=== PATIENT | male | born 1960 | race Caucasian/White ===

== ENCOUNTER → 2017-01-20 | Outpatient (CLI) | payer OTHER ==
[~2017-01-20] MED LIST: ADULT LOW DOSE81 MG PO; ALLERGY RELIEF10 M3 PO; AMBIEN 10 MG TA10 MG PO; APAP500 PO; AZITHROMYCIN 2250 MG PO; COREG PO; COZAAR100 MG PO; CYMBALTA30 MG PO; DESYREL50 MG PO; FUROSEMIDE 80 M80 M1 PO; LACTULOSE10 GM/15 M PO; LEVAQUIN 500 M500 MG PO; LEVEMIR SQ; LOPERAMIDE 2 MG2 M1 PO; NEURONTIN800 MG PO; NOVOLOG100 UNIT/1 SQ; PLAVIX 75 MG TA75 MG PO; SIMVASTATIN40 MG PO; TESTIM5 GM TD; VITAMIN D3 PO
== END ==
LOC: CAT 09:07
DX: M86.9 Osteomyelitis, unspecified (principal); R60.9 Edema, unspecified

== ENCOUNTER → 2017-08-05 | Outpatient (CLI) | payer OTHER | LOC: MRI 09:06 | DX: M86.8X7 Other osteomyelitis, ankle and foot (principal); L97.519 Non-pressure chronic ulcer of other part of right foot with unspecified severity ==

== ENCOUNTER 2018-01-18 23:26 | Inpatient (IN) | payer OTHER ==
[~2018-01-18] VITALS: Ht 193 cm; Wt 189.0 kg
--- NOTE | ~2018-01-18 | EKG ---
[place] [address] [facility] [place] [address] ELECTROCARDIOGRAM REPORT Name: HILDA SKAGGS Room #: 359-P ADM IN M.R.#: [id number] Admission: 01/19/18 Attend Phys: Niels Baer Discharge: Date of : 58 Report #: [id number] THIS REPORT FOR: //name// [facility] ED Test Date: 2018-01-18 Test Time: 23:45:05 Pat Name: HILDA SKAGGS Department: Room: 359 Gender: M Rn Clinical Appeals: deanne : 1960 Requested By: James Chapin Order Number: [id number] MD: Shashi Conley Measurements Intervals [place] Rate: 77 P: 16 MS: 202 QRS: -14 QRSD: 164 T: 1 QT: 414 QTc: 469 Interpretive Statements Sinus rhythm Borderline prolonged MS interval Right bundle branch block No previous ECG available for comparison Electronically Signed On 01-19-2018 7:33:49 CDT by Shashi Conley [email or web address] <ELECTRONICALLY SIGNED> By: Shashi Conley MD, [facility] 01/19/18 0733 [id number] 2345 Shashi Conley MD, FACC /EPI
[~2018-01-18 23:26] MED LIST changes: -COREG PO; +COREG25 MG PO; -DESYREL50 MG PO; +TRAZODONE 150150 M1 PO
[2018-01-18 23:27] VITALS: BP 134/48
[2018-01-18 23:46] LABS: BE(vivo) -1.5 mmol/L (-2 to +3); HCO3 21.6 mmol/L (22.0-26.0); PCO2 VENOUS 31.1 mmHg (41.0-51.0)
[2018-01-18 23:49] LABS: HEMOGLOBIN 10.3 gm/dL (14.0-18.0)
[2018-01-18 23:53] LABS: HEMATOCRIT 31.1 % (42.0-52.0); MCH 29.7 pg (26.0-34.0); MCV 89.9 fL (80.0-100.0); RBC 3.46 mil/uL (4.50-6.00); RDW 14.2 % (10.5-14.5); WBC 25.7 thou/uL (4.0-11.0)
[2018-01-18] MEDS ORDERED: CIPRO250 M1 PO (23:54)
[2018-01-18] MEDS ORDERED: LYRICA 50 MG50 MG PO (23:55)
[2018-01-18] MEDS ORDERED: CLONAZEPAM 1 MG1 M1 PO (23:55)
[2018-01-18] MEDS ORDERED: MIRAPEX0.5 MG PO (23:55)
[2018-01-18 23:56] LABS: CALCIUM 8.9 mg/dL (8.5-10.1); CREATININE 2.5 mg/dL (0.7-1.3); POTASSIUM 5.1 mmol/L (3.5-5.1)
[2018-01-18] MEDS ORDERED: ATORVASTATIN CA40 MG PO (23:56)
[2018-01-18] MEDS ORDERED: PROAIR HFA8.5 GM INH (23:56)
[2018-01-18] MEDS ORDERED: ZOLOFT50 MG PO (23:56)
[2018-01-18] MEDS ORDERED: FLONASE 0.05%50 MCG NASAL (23:57)
[2018-01-19] VITALS (7 sets, daily range): BP systolic 109–179; BP diastolic 49–75
[2018-01-19 00:02] LABS: ALBUMIN 2.9 g/dL (3.4-5.0); TOTAL BILIRUBIN 0.5 mg/dL (<0.1-1.0); TOTAL PROTEIN 7.3 g/dL (6.4-8.2)
[2018-01-19 00:11] LABS: URINE BILIRUBIN NEGATIVE (Negative); URINE BLOOD 1+ (Negative); URINE CLARITY CLOUDY; URINE COLOR YELLOW; URINE GLUCOSE-RANDOM* NEGATIVE (Negative); URINE KETONES NEGATIVE (Negative); URINE LEUKOCYTES-REFLEX 3+ (Negative); URINE NITRITE-REFLEX NEGATIVE (Negative); URINE PROTEIN (DIPSTICK) 2+ (Negative); URINE UROBILINOGEN 0.2 E.U./dl (0.2-1.0)
[2018-01-19 00:25] LABS: ABSOLUTE NEUTROPHILS 23.1 thou/uL (1.4-8.2)
[2018-01-19 00:28] LABS: PLATELET COUNT ND thou/uL (150-400)
[2018-01-19 00:30] LABS: BACTERIA-REFLEX >30 Many /HPF (None Seen); CASTS None Seen /LPF (None Seen); CRYSTALS None Seen /LPF (None Seen); SQUAMOUS 0-3 Few /LPF (0-3); URINE RBC 0-2 Rare /HPF (0-2); URINE WBC-REFLEX >25 Many /HPF (0-5)
[2018-01-20 03:31] VITALS: BP 144/73
[2018-01-20 07:49] VITALS: BP 148/67
[2018-01-20 08:42] LABS: HEMOGLOBIN 9.8 gm/dL (14.0-18.0); MCH 30.7 pg (26.0-34.0); MCHC 33.8 g/dL (28.0-37.0); MCV 90.8 fL (80.0-100.0); RBC 3.19 mil/uL (4.50-6.00); RDW 14.4 % (10.5-14.5)
[2018-01-20 11:18] VITALS: BP 155/70
[2018-01-20 16:31] VITALS: BP 152/67
[2018-01-20 19:50] VITALS: BP 141/59
[2018-01-21 04:30] VITALS: BP 168/77
[2018-01-21 04:55] LABS: ABSOLUTE NEUTROPHILS 5.3 thou/uL (1.4-8.2); BASOPHILS 0.5 % (0.0-2.0); HEMATOCRIT 27.7 % (42.0-52.0); HEMOGLOBIN 9.3 gm/dL (14.0-18.0); LYMPHOCYTES 17.5 % (24.0-44.0); MCH 30.2 pg (26.0-34.0); MCHC 33.4 g/dL (28.0-37.0); MCV 90.4 fL (80.0-100.0); MONOCYTES 9.9 % (1.0-8.0); PLATELET COUNT 229 thou/uL (150-400); POLYS 71.1 % (36.0-66.0); RBC 3.07 mil/uL (4.50-6.00); WBC 7.4 thou/uL (4.0-11.0)
[2018-01-21 05:02] LABS: CALCIUM 8.9 mg/dL (8.5-10.1); CREATININE 2.3 mg/dL (0.7-1.3); POTASSIUM 4.1 mmol/L (3.5-5.1)
[2018-01-21 07:53] VITALS: BP 186/83
[2018-01-21 11:29] VITALS: BP 177/75
[2018-01-21 16:21] VITALS: BP 146/67
[2018-01-21 19:08] VITALS: BP 140/63
[2018-01-22 03:34] VITALS: BP 136/72
[2018-01-22 07:56] VITALS: BP 171/75
[2018-01-22 11:30] VITALS: BP 175/74
[2018-01-22 16:17] VITALS: BP 189/81
[2018-01-22 19:21] VITALS: BP 136/64
[2018-01-23 03:56] VITALS: BP 134/70
[2018-01-23 05:23] LABS: ABSOLUTE NEUTROPHILS 4.4 thou/uL (1.4-8.2); BASOPHILS 0.7 % (0.0-2.0); EOSINOPHILS 2.7 % (0.0-3.0); HEMATOCRIT 29.4 % (42.0-52.0); HEMOGLOBIN 9.9 gm/dL (14.0-18.0); LYMPHOCYTES 25.3 % (24.0-44.0); MCH 30.2 pg (26.0-34.0); MCHC 33.8 g/dL (28.0-37.0); MCV 89.3 fL (80.0-100.0); MONOCYTES 11.8 % (1.0-8.0); PLATELET COUNT 264 thou/uL (150-400); POLYS 59.5 % (36.0-66.0); RBC 3.29 mil/uL (4.50-6.00); WBC 7.4 thou/uL (4.0-11.0)
[2018-01-23 05:29] LABS: CALCIUM 9.4 mg/dL (8.5-10.1); POTASSIUM 3.7 mmol/L (3.5-5.1)
[2018-01-23 07:20] VITALS: BP 168/82
[2018-01-23 11:02] VITALS: BP 151/68
[2018-01-23 16:02] VITALS: BP 157/74
[2018-01-23 19:06] VITALS: BP 145/66
[2018-01-24 03:24] VITALS: BP 147/69
[2018-01-24 07:17] VITALS: BP 157/76
[2018-01-24 11:29] VITALS: BP 168/80
[2018-01-24] MEDS ORDERED: MERREM1 GM IV ×2 (14:52→14:55)
[2018-01-24] MEDS ORDERED: ENOXAPARIN40 MG/0.1 SUBQ (14:52)
[2018-01-24] MEDS ORDERED: FLOMAX0.4 MG PO (14:52)
[2018-01-24] MEDS ORDERED: MIRALAX17 GM PO (14:52)
[2018-01-24 16:05] VITALS: BP 157/82
== END 2018-01-24 20:20 | DRG 871 ==
LOC: ER 23:26 → 3W 01-19 00:19 → EROBS 01-19 00:19 → 3W 01-19 00:45
PROVIDERS: Emergency Medicine; Hospitalist
DX: A41.9 Sepsis, unspecified organism (principal); N17.0 Acute kidney failure with tubular necrosis; Z68.43 Body mass index [BMI] 50.0-59.9, adult; N39.0 Urinary tract infection, site not specified; E78.5 Hyperlipidemia, unspecified; J44.9 Chronic obstructive pulmonary disease, unspecified; E11.40 Type 2 diabetes mellitus with diabetic neuropathy, unspecified; K21.9 Gastro-esophageal reflux disease without esophagitis; E66.9 Obesity, unspecified; R65.20 Severe sepsis without septic shock; G47.33 Obstructive sleep apnea (adult) (pediatric); N18.9 Chronic kidney disease, unspecified; I12.9 Hypertensive chronic kidney disease with stage 1 through stage 4 chronic kidney disease, or unspecified chronic kidney disease; E11.22 Type 2 diabetes mellitus with diabetic chronic kidney disease; B96.1 Klebsiella pneumoniae [K. pneumoniae] as the cause of diseases classified elsewhere; Z89.512 Acquired absence of left leg below knee; Z86.73 Personal history of transient ischemic attack (TIA), and cerebral infarction without residual deficits; Z79.82 Long term (current) use of aspirin; Z79.899 Other long term (current) drug therapy; Z88.0 Allergy status to penicillin; Z91.013 Allergy to seafood
CPT/HCPCS: 10879

== ENCOUNTER 2018-03-30 09:12 | Inpatient (IN) | payer OTHER ==
[~2018-03-30] VITALS: Ht 193 cm; Wt 172.3 kg
[2018-03-30] VITALS (9 sets, daily range): BP systolic 113–195; BP diastolic 42–92
--- NOTE | ~2018-03-30 | HC ---
[facility] [place] [address] [place] [address] CONSULTATION Name: HILDA SKAGGS Room #: 357-P [facility] IN .R.#: [id number] Admission: 03/30/18 Attend Phys: Neeraj Pride MD Discharge: Date of : 58 Report #: [id number] THIS REPORT FOR: //name// CC: Magdaleno Mesa DATE OF SERVICE: 03/30/2018 GENERAL SURGERY CONSULTATION REFERRING PROVIDER: Paulo Mesa MD REASON FOR CONSULTATION: Abdominal pain. HISTORY OF PRESENT ILLNESS: The patient is a 57-year-old morbidly obese male, with a past medical history of hypertension, diabetes mellitus, chronic kidney disease, COPD, obstructive sleep apnea, prior stroke, neuropathy, CHF, GERD, peripheral vascular disease, status post left BKA, hyperlipidemia and multiple other issues, who sustained a fall at home and presented for evaluation. The patient was found to have a urinary tract infection and underwent evaluation of his abdomen due to complaints of right upper and left lower abdominal pain. An abdominal x-ray showed no overt process; therefore, a CT scan of the abdomen and pelvis was performed, which showed an inflammatory process in the right upper quadrant with a few bubbles of extraluminal air concerning for segmental colitis with a microperforation. As such, the patient has been admitted and I am asked to evaluate from a surgical standpoint. Currently, the patient states no complaints, specifically, no fevers, chills or sweats. He has been hemodynamically stable. White count was slightly elevated at 16.9 thousand. PAST MEDICAL HISTORY: As above as delineated in HPI. HOME MEDICATIONS: Aspirin, Lasix, Plavix, Flomax, Lovenox, MiraLax, aspirin, Coreg, Neurontin, Desyrel, NovoLog, Levemir, Lyrica, clonazepam, Mirapex, ProAir, Lipitor, Zoloft and Flonase. ALLERGIES: FISH AND PENICILLIN. SOCIAL HISTORY: Previous smoker and alcohol use; however, currently does not utilize tobacco, alcohol or illicit drugs. FAMILY HISTORY: Reviewed and noncontributory. REVIEW OF SYSTEMS: GENERAL: The patient denies nocturnal fevers or chills. [facility] [address] [place] [address] CONSULTATION Name: HILDA SKAGGS Room #: 357-P [facility] IN .R.#: [id number] Admission: 03/30/18 Attend Phys: Neeraj Pride MD Discharge: Date of : 58 Report #: [id number] HEENT: No change in vision, change in hearing. NECK: No swelling or difficulty swallowing. HEART: No chest pain or palpitations. LUNGS: No cough or shortness of breath. ABDOMEN: No nausea, no vomiting. GENITOURINARY: No dysuria or hematuria. ENDOCRINE: No polyuria, polydipsia. HEMATOLOGIC: No history of bleeding or easy bruising. EXTREMITIES: No history weakness or limited range of motion. NEUROLOGIC: No history of syncope or near syncopal episodes. SKIN AND INTEGUMENT: History of ulcer on his left heel as well as prior BKA. PSYCHIATRIC: History of depression and anxiety. PHYSICAL EXAMINATION: VITAL SIGNS: Temperature 98.5, pulse 81, respirations 14, blood pressure 162/67. He is 6 feet 4 inches tall and weighs 405 pounds. GENERAL: Alert, in no acute distress. HEENT: Normocephalic, atraumatic. Pupils are equal, round, reactive to light. NECK: Supple, without lymphadenopathy. Trachea midline. HEART: Regular rate and rhythm. LUNGS: Clear to auscultation bilaterally. ABDOMEN: Morbidly obese, soft, minimally distended. He does have diffuse tenderness, worse in the right upper quadrant, although very minimal in the left lower quadrant. GENITOURINARY: Normal external male genitalia. EXTREMITIES: Right heel with fibrinous material eschar, left BKA is unremarkable. NEUROLOGIC: Cranial nerves 2-12 are grossly intact. PSYCHIATRIC: Normal mood and affect. SKIN AND INTEGUMENT: Just the right heel wound. No sacral ischial wounds at this time. LABORATORY AND X-RAY DATA: CBC shows white blood cell count of 16.9 thousand, hemoglobin 9.8, platelets 231,000. Creatinine is 3.4. CT scan of the abdomen and pelvis shows inflammatory fat stranding in the right upper quadrant with small extraluminal air concerning for segmental colitis with microperforation, but no definite abscess. Urine culture is pending. ASSESSMENT AND PLAN: A 57-year-old morbidly obese male, with numerous medical problems, who sustained a fall while transferring from his wheelchair and landing on his right side and now, has complaints of right upper quadrant and left lower quadrant abdominal pain with leukocytosis and a workup showing a urinary tract infection as well as an inflammatory process around the hepatic flexure of the colon concerning for microperforation. At this time, the patient does not appear septic and certainly has no peritonitis. We will continue conservative care with n.p.o. status, IV fluid rehydration, IV antibiotics under [address] [address] CONSULTATION Name: HILDA KSAGGS Room #: 357-P ADM IN M.R.#: [id number] Admission: 03/30/18 Attend Phys: Neeraj Pride MD Discharge: Date of : 58 Report #: [id number] the direction of Infectious Disease and I will perform serial abdominal exams and radiologic studies as indicated. Ideally, the patient will improve with conservative measures and avoid operative intervention as he is a quite unhealthy overall and any operative intervention would certainly lead to perioperative morbidity. I did spend greater than 60 minutes discussing with the patient and all other providers involved in his care regarding the above and all have agreed to proceed as outlined. If the patient does decompensate acutely, he may necessitate emergent exploration, which we hope to avoid. I sincerely appreciate this consult. I will follow closely while hospitalized and leave any further recommendations in the patient's chart as appropriate. <ELECTRONICALLY SIGNED> By: Federica Paul MD, FACS 04/04/18 0809 1235 1918 Federica Paul MD, FACS /nt
--- NOTE | ~2018-03-30 | HC ---
[facility] [place] [address] [place] [address] CONSULTATION Name: HILDA SKAGGS Room #: 357-P ADM IN .R.#: [id number] Admission: 03/30/18 Attend Phys: Neeraj Pride MD Discharge: Date of : 58 Report #: [id number] THIS REPORT FOR: //name// CC: Magdaleno Mesa INFECTIOUS DISEASES CONSULTATION REASON FOR CONSULTATION: I was asked to evaluate concerning peritonitis. HISTORY OF PRESENT ILLNESS: The patient is a 57-year-old with underlying history of diabetes, peripheral vascular disease, hypertension, who I treated in January with an ESBL producing gram-negative urinary tract infection. He did improve following this. He presents now with acute change with weakness, fall where he hit his forehead and left shoulder. No documented fever, chills or sweats. It was thought that he was transferring from the wheelchair and just lost his balance. No documented fever, chills or sweats. He presented to the Emergency Room where he was afebrile and hemodynamically stable. Workup after complaints of abdominal pain noted CT scan with inflammatory changes in the right upper quadrant and free air in the abdomen. Creatinine was up to 2.1. White count was 16.9. Placed on IV antibiotic therapy. Over the last 24 hours, he has shown some improvement. Seen by General Surgery who recommended continued observation and followup. PAST MEDICAL HISTORY: Significant for hypertension, diabetes, obstructive sleep apnea, peripheral vascular disease, left BKA, previous urinary tract infection. ALLERGIES: PENICILLIN, FISH. MEDICATIONS: As noted on his MAR including aspirin, Lasix, Plavix, atorvastatin. FAMILY HISTORY: Diabetes. SOCIAL HISTORY: Past smoker, no significant alcohol intake. REVIEW OF SYSTEMS: He denies any headache, cough or sputum production. No nausea or vomiting. He has had loose stools. Continues to complain of abdominal pain. He had a left BKA. He has a pressure wound to his right heel. PHYSICAL EXAMINATION: VITAL SIGNS: Maximum temperature was 101 degrees last evening, now afebrile and hemodynamically stable. Alert and cooperative. Oxygen per nasal cannula at 2 liters. HEENT: Unremarkable. NECK: Supple. No adenopathy. CHEST: Clear. [facility] [address] [address] CONSULTATION Name: HILDA SKAGGS Room #: 357-P [facility] IN [facility].#: [id number] Admission: 03/30/18 Attend Phys: Neeraj Pride MD Discharge: Date of : 58 Report #: [id number] HEART: Regular without murmur. ABDOMEN: Mildly distended. Tender throughout, but mostly over the right side. No mass or hepatosplenomegaly. EXTREMITIES: Wound to the right heel with fibrinous material eschar. Left BKA was unremarkable. LABORATORY STUDIES: Urinalysis, many wbc's and bacteria with yeast present. This was a voided specimen. Blood cultures negative to date. Sodium 132, potassium 5.2, bicarbonate 22, creatinine 3.4. Hemoglobin 9.8, WBC 14.3, platelet count 231,000. CT of the abdomen compared to study in December showed inflammatory fat stranding in the right upper quadrant with small gas collection. No definite abscess cavity. Urine culture is pending. IMPRESSION AND PLAN: A 57-year-old diabetic with inflammatory change in the right upper quadrant consistent with focal area of colitis with perforation. Etiology of this is not clear. I did review the CT scan and compare it to his previous study in December, I did not see any evidence of significant inflammatory change at that time. I suspect this is what is driving his leukocytosis and likely influenced his unsteadiness and fall. He has a pressure wound to the right heel. Also, he has evidence of cystitis. Given the previous history of an extended-spectrum beta-lactamase producing Klebsiella in December, I would recommend continuing coverage for drug resistant organism. Agree with plan of meropenem and metronidazole at this time. We will await further studies. Follow up laboratory including CBC and chemistry. Repeat imaging studies first of next week to reassess the right upper quadrant. If no improvement, the patient will require surgical intervention for drainage and possibly segmental resection. <ELECTRONICALLY SIGNED> By: Lv Galvan MD 04/03/18 1245 1356 2111 Lv Galvan MD /nt
--- NOTE | ~2018-03-30 | HC ---
[facility] [place] [address] CONSULTATION Name: HILDA SKAGGS Room #: 206-P [facility] IN .R.#: [id number] Admission: 03/30/18 Attend Phys: Paulo Mesa MD Discharge: Date of : 58 Report #: [id number] THIS REPORT FOR: //name// CC: Magdaleno Mesa DATE OF SERVICE: 03/30/2018 CHIEF COMPLAINT: Left heel ulceration. HISTORY OF PRESENT ILLNESS: This is a 57-year-old male patient with a history of diabetes and previous right below knee amputation who was admitted to the hospital following a fall. He states he lost his balance, struck his head. He also has an ulceration on his left heel that has been present for several weeks. He denies any pain due to diabetic neuropathy. I have been asked to see him in regard to wound care. PAST MEDICAL HISTORY: Positive for history of hypertension, diabetes, chronic kidney disease, COPD, cerebrovascular accident, obstructive sleep apnea, diabetic peripheral neuropathy, congestive heart failure, gastroesophageal reflux, peripheral vascular disease, status post left below knee amputation, hyperlipidemia. ALLERGIES: FISH AND PENICILLIN. MEDICATIONS: Include Flomax, Lovenox, MiraLax, Merrem, aspirin, Coreg, furosemide, Neurontin, Plavix, Desyrel, NovoLog, Levemir, Lyrica, clonazepam, Mirapex, ProAir, Lipitor, Zoloft, Flonase. SOCIAL HISTORY: The patient is a previous smoker and admits to past alcohol use. REVIEW OF SYSTEMS: CONSTITUTIONAL: The patient denies fever, chills or weight loss. NEUROLOGICAL: The patient had unsteadiness on his feet with recent fall. Denies current weakness, numbness or tingling. EYES: The patient denies visual changes, redness or drainage. ENT: The patient denies earache, nasal drainage or sore throat. CARDIOVASCULAR: The patient denies chest pain, palpitation or diaphoresis. PULMONARY: The patient denies cough or shortness of breath. GASTROINTESTINAL: The patient denies nausea, vomiting, diarrhea or abdominal pain. ORTHOPEDIC: The patient notes the ulcer on his left heel. Denies pain associated with it. Other systems in a 14-point review of systems are negative in March. [address] [address] CONSULTATION Name: HILDA SKAGGS Room #: 206-P ADM IN .R.#: [id number] Admission: 03/30/18 Attend Phys: Paulo Mesa MD Discharge: Date of : 58 Report #: [id number] PHYSICAL EXAMINATION: VITAL SIGNS: At this time include pulse 74, respiratory rate of 22, blood pressure 151/64, temperature 101.1. GENERAL: This is a chronically ill-appearing male patient who appears to be in mild discomfort. HEENT: Head demonstrates an abrasion to his left eyebrow, there is a Band-Aid in place. Remainder of the head is atraumatic. Extraocular movements are intact. Pupils are equal, round and reactive to light and accommodation. Nose and throat are clear. NECK: Supple. LUNGS: Clear. HEART: Regular rate and rhythm. ABDOMEN: Soft. Bowel sounds present. EXTREMITIES: Lower extremities demonstrate previous left below knee amputation appears to be well healed. Right heel demonstrates an oval shaped ulceration to the posterior portion of the heel. It is covered with moderate fibrinous material and subcutaneous tissue that is slightly dry. There is a slight odor, although there is no surrounding cellulitis. NEUROLOGIC: The patient is alert and does move all 4 extremities. LABORATORY DATA: Includes sodium 133, potassium 4.9, chloride 102, CO2 of 21, BUN 45, creatinine 2.8, glucose 211. White blood cell count 16.9 with a hemoglobin of 9.9, hematocrit of 29.8, platelet count 240,000. CT head demonstrates no acute abnormality. CLINICAL IMPRESSION: 1. Unstageable pressure ulcer to the right heel. 2. Diabetes mellitus with peripheral neuropathy. 3. History of peripheral vascular disease. 4. Status post previous left below knee amputation. RECOMMENDATIONS: At this point in time, I think it would be worthwhile checking arterial Doppler of the right lower extremity, although I do feel distal pulses present. We will need to debride the right heel for the time being, we will start with quarter strength Dakin's moist gauze dressing b.i.d., Prevalon boot for pressure prophylaxis. I will need aggressive nutritional support for maximizing wound healing and glycemic control. I appreciate being asked to see him in consultation. <ELECTRONICALLY SIGNED> By: Yazan Dao MD 03/31/18 1131 25 13 Yazan Dao MD /nt
--- NOTE | ~2018-03-30 | HC ---
[facility] [place] [address] CONSULTATION Name: HILDA SKAGGS Room #: 357-P [facility] IN ..#: [id number] Admission: 03/30/18 Attend Phys: Neeraj Pride MD Discharge: Date of : 58 Report #: [id number] THIS REPORT FOR: //name// CC: Magdaleno Mesa REASON FOR CONSULTATION: Elevated creatinine and fluid management. REASON FOR PRESENTATION: Post fall. HISTORY OF PRESENT ILLNESS: The patient is known to have diabetes mellitus, chronic kidney disease, obstructive sleep apnea, status post left BKA due to diabetes mellitus. He presented post fall. Does not recall the entire event. He had abrasion sustained to his forehead and left shoulder. He was admitted for further evaluation and management. Incidentally, he was found to have what was described as potential inflammatory stranding in the right upper quadrant with what seems to be gas collection to the inferior aspect of the right lobe of the liver. The patient denies any abdominal pain. No nausea or vomiting. When he presented yesterday, his creatinine was elevated at 2.8, I am being asked to evaluate him accordingly. He has long-standing diabetes mellitus with all of its complications. Reviewing his labs, it does not look like that he has chronically elevated creatinine, most recent creatinine back in January of this year was as high as 2.0. Labs in December revealed a creatinine of 2.5. It does not look like that he has significant proteinuria. Kidneys on the CT scan did not reveal any hydronephrosis; however, his bladder was distended. PAST MEDICAL HISTORY: 1. Hypertension. 2. Diabetes mellitus. 3. Obstructive sleep apnea. 4. Diabetic neuropathy. 5. Peripheral vascular disease, status post left BKA. ALLERGIES: PENICILLIN, FISH. FAMILY HISTORY: Significant for diabetes mellitus. SOCIAL HISTORY: He denies drug or alcohol abuse. Former smoker. MEDICATIONS: 1. Aspirin. 2. Furosemide. 3. Plavix. 4. Atorvastatin. REVIEW OF SYSTEMS: GENERAL: No fever or chills. [facility] [address] [place] [address] CONSULTATION Name: HILDA SKAGGS Room #: 357-[facility] IN [facility].#: [id number] Admission: 03/30/18 Attend Phys: Neeraj Pride MD Discharge: Date of : 58 Report #: [id number] CARDIOVASCULAR: No chest pain or palpitation. PULMONARY: No cough or hemoptysis. GASTROINTESTINAL: No nausea or vomiting. GENITOURINARY: He denies any urinary symptoms. PHYSICAL EXAMINATION: GENERAL: He is alert, oriented, in no apparent distress, was slightly asleep this morning. VITAL SIGNS: Blood pressure 129/54. Temperature 36.8. HEAD AND NECK: No jugular venous distention, no bruit, no thyromegaly. CHEST: Clear to auscultation bilaterally. CARDIOVASCULAR: Regular with no rub. ABDOMEN: Soft, nontender. LOWER EXTREMITIES: Amputation on the left side. LABORATORY DATA: Laboratory values reviewed. Creatinine is up to 2.8. Sodium was 133, potassium was 4.9, BUN was 45. Glucose was 211. Abdominal CT findings, abdominal CT reviewed, possible inflammatory changes in the right upper quadrant. ASSESSMENT, IMPRESSION, PLAN: 1. Chronic kidney disease. 2. Diabetes mellitus. 3. Hypertension. 4. Status post fall. 5. Diabetic related complications. 6. Investigate for possible diabetic nephropathy. Initiate CKD workup. 7. Surgical consultation. 8. Panculture given his leukocytosis. 9. Appropriate antibiotic coverage. 10. Avoid nephrotoxins. 11. Gentle hydration since the patient is going to be n.p.o. 12. Discontinue current gabapentin. 13. Adjust all medications to his GFR. <ELECTRONICALLY SIGNED> By: Emmanuel Chavis MD 04/08/18 0756 0610 0704 Emmanuel Chavis MD /nt
[~2018-03-30 09:12] MED LIST changes: +ATORVASTATIN CA40 MG PO; +CIPRO250 M1 PO; +CLONAZEPAM 1 MG1 M1 PO; +ENOXAPARIN40 MG/0.1 SUBQ; +FLOMAX0.4 MG PO; +FLONASE 0.05%50 MCG NASAL; +LYRICA 50 MG50 MG PO; +MERREM1 GM IV; +MIRALAX17 GM PO; +MIRAPEX0.5 MG PO; +PROAIR HFA8.5 GM INH; +ZOLOFT50 MG PO
[2018-03-30 09:30] LABS: ABSOLUTE NEUTROPHILS 13.9 thou/uL (1.4-8.2); BASOPHILS 0.3 % (0.0-2.0); EOSINOPHILS 0.1 % (0.0-3.0); HEMATOCRIT 29.8 % (42.0-52.0); HEMOGLOBIN 9.9 gm/dL (14.0-18.0); LYMPHOCYTES 8.1 % (24.0-44.0); MCH 30.2 pg (26.0-34.0); MCHC 33.3 g/dL (28.0-37.0); MCV 90.8 fL (80.0-100.0); MONOCYTES 9.4 % (1.0-8.0); PLATELET COUNT 240 thou/uL (150-400); POLYS 82.1 % (36.0-66.0); RBC 3.28 mil/uL (4.50-6.00); RDW 15.1 % (10.5-14.5); WBC 16.9 thou/uL (4.0-11.0)
[2018-03-30 09:42] LABS: CALCIUM 8.8 mg/dL (8.5-10.1); CREATININE 2.8 mg/dL (0.7-1.3); POTASSIUM 4.9 mmol/L (3.5-5.1)
[2018-03-30 09:49] LABS: PROTIME 10.4 Seconds (9.3-11.4)
[2018-03-30 10:40] LABS: URINE BILIRUBIN NEGATIVE (Negative); URINE BLOOD 2+ (Negative); URINE CLARITY CLOUDY; URINE COLOR YELLOW; URINE GLUCOSE-RANDOM* NEGATIVE (Negative); URINE KETONES NEGATIVE (Negative); URINE NITRITE-REFLEX NEGATIVE (Negative); URINE PROTEIN (DIPSTICK) 2+ (Negative); URINE SPECIFIC GRAVITY 1.025 (1.005-1.035); URINE UROBILINOGEN 0.2 E.U./dl (0.2-1.0)
[2018-03-30 10:42] LABS: URINE LEUKOCYTES-REFLEX 3+ (Negative)
[2018-03-30 11:08] LABS: URINE WBC-REFLEX >25 Many /HPF (0-5)
[2018-03-30 11:09] LABS: BACTERIA-REFLEX >30 Many /HPF (None Seen); CASTS None Seen /LPF (None Seen); CRYSTALS None Seen /LPF (None Seen); SQUAMOUS None Seen /LPF (0-3); URINE RBC 0-2 Rare /HPF (0-2); YEAST-REFLEX Present (None Seen)
[2018-03-31 04:31] VITALS: BP 129/54
[2018-03-31 07:45] VITALS: BP 104/54
[2018-03-31 08:59] LABS: HEMATOCRIT 29.5 % (42.0-52.0); HEMOGLOBIN 9.8 gm/dL (14.0-18.0); MCH 30.4 pg (26.0-34.0); MCHC 33.2 g/dL (28.0-37.0); MCV 91.4 fL (80.0-100.0); RBC 3.23 mil/uL (4.50-6.00); WBC 14.3 thou/uL (4.0-11.0)
[2018-03-31 09:06] LABS: CALCIUM 8.9 mg/dL (8.5-10.1); CREATININE 3.4 mg/dL (0.7-1.3); POTASSIUM 5.2 mmol/L (3.5-5.1)
[2018-03-31 10:05] LABS: URINE CREATININE-RANDOM* 239.8 mg/dL; URINE PROTEIN-RANDOM* 396.7 mg/dL (<11.9)
[2018-03-31 10:12] LABS: URINE BILIRUBIN NEGATIVE (Negative); URINE BLOOD 2+ (Negative); URINE CLARITY CLOUDY; URINE COLOR YELLOW; URINE GLUCOSE-RANDOM* NEGATIVE (Negative); URINE KETONES NEGATIVE (Negative); URINE LEUKOCYTES 1+ (Negative); URINE NITRITE NEGATIVE (Negative); URINE PROTEIN (DIPSTICK) 2+ (Negative); URINE SPECIFIC GRAVITY >= 1.030 (1.005-1.035); URINE UROBILINOGEN 0.2 E.U./dl (0.2-1.0)
[2018-03-31 10:21] LABS: COARSE GRANULAR CASTS 4-10 Moderate /LPF (None Seen); SQUAMOUS 0-3 Few /LPF (0-3)
[2018-03-31 10:23] LABS: URINE RBC 0-2 Rare /HPF (0-2); URINE WBC >25 Many /HPF (0-5)
[2018-03-31 10:24] LABS: BACTERIA >30 Many /HPF (None Seen); CRYSTALS None Seen /LPF (None Seen); YEAST Present (None Seen)
[2018-03-31 10:26] LABS: FINE GRANULAR CASTS 0-3 Few /LPF (None Seen)
[2018-03-31 11:45] VITALS: BP 146/51
[2018-03-31 15:00] VITALS: BP 133/41
[2018-03-31 20:11] VITALS: BP 138/60
[2018-04-01] VITALS (19 sets, daily range): BP systolic 138–202; BP diastolic 59–89
[2018-04-01 04:13] LABS: HEMATOCRIT 27.5 % (42.0-52.0); HEMOGLOBIN 9.1 gm/dL (14.0-18.0); MCH 30.4 pg (26.0-34.0); MCHC 33.1 g/dL (28.0-37.0); MCV 91.8 fL (80.0-100.0); RBC 2.99 mil/uL (4.50-6.00); RDW 14.9 % (10.5-14.5); WBC 10.7 thou/uL (4.0-11.0)
[2018-04-01 04:28] LABS: ALBUMIN 2.2 g/dL (3.4-5.0); CALCIUM 8.6 mg/dL (8.5-10.1); CREATININE 2.9 mg/dL (0.7-1.3); PHOSPHORUS 3.2 mg/dL (2.5-4.9); POTASSIUM 4.8 mmol/L (3.5-5.1)
[2018-04-01 14:59] LABS: PROTIME 10.2 Seconds (9.3-11.4)
[2018-04-01 18:10] LABS: ALBUMIN 2.3 g/dL (3.4-5.0); DIRECT BILIRUBIN 0.2 mg/dL (<0.1-0.3); TOTAL BILIRUBIN 0.4 mg/dL (<0.1-1.0); TOTAL PROTEIN 7.1 g/dL (6.4-8.2)
[2018-04-01 18:11] LABS: ALBUMIN 2.3 g/dL (3.4-5.0); ANION GAP 10 mmol/L (7-16); BUN 51 mg/dL (7-18); CHLORIDE 106 mmol/L (98-107); CO2 23 mmol/L (21-32); CREATININE 2.4 mg/dL (0.7-1.3); GLUCOSE 225 mg/dL (74-106); SGOT 21 U/L (15-37); SGPT 12 U/L (30-65); SODIUM 139 mmol/L (136-145); TOTAL BILIRUBIN 0.4 mg/dL (<0.1-1.0); TOTAL PROTEIN 7.1 g/dL (6.4-8.2); TROPONIN-I < 0.04 ng/mL (<0.06)
[2018-04-01 19:20] LABS: ABSOLUTE NEUTROPHILS 12.3 thou/uL (1.4-8.2); BASOPHILS 0.6 % (0.0-2.0); EOSINOPHILS 0.1 % (0.0-3.0); HEMATOCRIT 32.6 % (42.0-52.0); HEMOGLOBIN 10.7 gm/dL (14.0-18.0); MCH 29.9 pg (26.0-34.0); MCHC 32.7 g/dL (28.0-37.0); MCV 91.5 fL (80.0-100.0); MONOCYTES 6.3 % (1.0-8.0); PLATELET COUNT 287 thou/uL (150-400); RBC 3.56 mil/uL (4.50-6.00); RDW 15.1 % (10.5-14.5); WBC 13.6 thou/uL (4.0-11.0)
[2018-04-01 19:27] LABS: BE(vivo) -2.2 mmol/L (-2 to +3); HCO3 22.8 mmol/L (22.0-26.0); PCO2 39.9 mmHg (35.0-45.0); pH 7.375 (7.360-7.450); sO2 95.9 % (92.0-98.0)
[2018-04-02] VITALS (32 sets, daily range): BP systolic 155–230; BP diastolic 65–93
[2018-04-02 05:41] LABS: BE(vivo) -2.9 mmol/L (-2 to +3); HCO3 21.9 mmol/L (22.0-26.0); PCO2 38.3 mmHg (35.0-45.0); PO2 86.3 mmHg (80.0-100.0); pH 7.376 (7.360-7.450); sO2 96.4 % (92.0-98.0)
[2018-04-02 05:54] LABS: ABSOLUTE NEUTROPHILS 12.5 thou/uL (1.4-8.2); BASOPHILS 0.2 % (0.0-2.0); HEMATOCRIT 30.8 % (42.0-52.0); HEMOGLOBIN 10.1 gm/dL (14.0-18.0); LYMPHOCYTES 4.4 % (24.0-44.0); MCH 30.3 pg (26.0-34.0); MCHC 32.9 g/dL (28.0-37.0); MONOCYTES 8.8 % (1.0-8.0); PLATELET COUNT 281 thou/uL (150-400); POLYS 86.6 % (36.0-66.0); RBC 3.34 mil/uL (4.50-6.00); RDW 15.4 % (10.5-14.5); WBC 14.4 thou/uL (4.0-11.0)
[2018-04-02 06:13] LABS: CALCIUM 8.5 mg/dL (8.5-10.1); CREATININE 2.4 mg/dL (0.7-1.3); MAGNESIUM 2.1 mg/dL (1.8-2.4); PHOSPHORUS 3.6 mg/dL (2.5-4.9); POTASSIUM 5.3 mmol/L (3.5-5.1); TOTAL BILIRUBIN 0.5 mg/dL (<0.1-1.0); TOTAL PROTEIN 6.4 g/dL (6.4-8.2)
[2018-04-03 04:50] VITALS: BP 169/75
[2018-04-03 05:59] LABS: BASOPHILS 0.3 % (0.0-2.0); WBC 13.4 thou/uL (4.0-11.0)
[2018-04-03 06:01] LABS: ABSOLUTE NEUTROPHILS 11.7 thou/uL (1.4-8.2); EOSINOPHILS 0.2 % (0.0-3.0); HEMATOCRIT 30.4 % (42.0-52.0); HEMOGLOBIN 10.2 gm/dL (14.0-18.0); LYMPHOCYTES 4.8 % (24.0-44.0); MCH 30.5 pg (26.0-34.0); MCHC 33.5 g/dL (28.0-37.0); MONOCYTES 6.8 % (1.0-8.0); PLATELET COUNT 329 thou/uL (150-400); POLYS 87.9 % (36.0-66.0); RBC 3.34 mil/uL (4.50-6.00); RDW 15.5 % (10.5-14.5)
[2018-04-03 06:19] LABS: ALBUMIN 1.9 g/dL (3.4-5.0); CALCIUM 8.8 mg/dL (8.5-10.1); CREATININE 2.4 mg/dL (0.7-1.3); PHOSPHORUS 3.3 mg/dL (2.5-4.9); POTASSIUM 4.7 mmol/L (3.5-5.1)
[2018-04-03 12:00] VITALS: BP 170/77
[2018-04-03 13:30] VITALS: BP 165/78
[2018-04-03 16:00] VITALS: BP 160/77
[2018-04-03 20:45] VITALS: BP 152/67
[2018-04-04] VITALS (7 sets, daily range): BP systolic 114–180; BP diastolic 60–83
[2018-04-04 06:22] LABS: HEMATOCRIT 32.9 % (42.0-52.0); HEMOGLOBIN 10.5 gm/dL (14.0-18.0); MCH 29.6 pg (26.0-34.0); MCHC 31.8 g/dL (28.0-37.0); MCV 93.1 fL (80.0-100.0); RBC 3.53 mil/uL (4.50-6.00); RDW 15.5 % (10.5-14.5); WBC 14.1 thou/uL (4.0-11.0)
[2018-04-04 06:43] LABS: ALBUMIN 1.9 g/dL (3.4-5.0); CALCIUM 8.9 mg/dL (8.5-10.1); CREATININE 2.5 mg/dL (0.7-1.3); PHOSPHORUS 3.2 mg/dL (2.5-4.9); POTASSIUM 4.4 mmol/L (3.5-5.1)
[2018-04-05 03:45] VITALS: BP 124/49
[2018-04-05 08:00] VITALS: BP 145/55
[2018-04-05 08:46] LABS: ABSOLUTE NEUTROPHILS 10.7 thou/uL (1.4-8.2); BASOPHILS 0.5 % (0.0-2.0); EOSINOPHILS 2.5 % (0.0-3.0); HEMATOCRIT 32.7 % (42.0-52.0); HEMOGLOBIN 10.5 gm/dL (14.0-18.0); LYMPHOCYTES 8.5 % (24.0-44.0); MCH 29.5 pg (26.0-34.0); MCHC 32.1 g/dL (28.0-37.0); MCV 91.8 fL (80.0-100.0); MONOCYTES 10.1 % (1.0-8.0); PLATELET COUNT 381 thou/uL (150-400); POLYS 78.4 % (36.0-66.0); RBC 3.56 mil/uL (4.50-6.00); RDW 15.5 % (10.5-14.5); WBC 13.6 thou/uL (4.0-11.0)
[2018-04-05 08:56] LABS: CALCIUM 8.5 mg/dL (8.5-10.1); CREATININE 2.9 mg/dL (0.7-1.3); POTASSIUM 4.7 mmol/L (3.5-5.1)
[2018-04-05 12:00] VITALS: BP 145/65
[2018-04-05 16:00] VITALS: BP 141/71
[2018-04-05 19:30] VITALS: BP 147/65
[2018-04-06 03:45] VITALS: BP 136/68
[2018-04-06 06:20] LABS: HEMATOCRIT 31.2 % (42.0-52.0); HEMOGLOBIN 10.1 gm/dL (14.0-18.0); MCH 29.6 pg (26.0-34.0); MCHC 32.5 g/dL (28.0-37.0); MCV 91.2 fL (80.0-100.0); RBC 3.42 mil/uL (4.50-6.00); RDW 15.7 % (10.5-14.5)
[2018-04-06 06:32] LABS: ALBUMIN 1.8 g/dL (3.4-5.0); CALCIUM 8.5 mg/dL (8.5-10.1); CREATININE 2.6 mg/dL (0.7-1.3); PHOSPHORUS 4.6 mg/dL (2.5-4.9); POTASSIUM 4.1 mmol/L (3.5-5.1)
[2018-04-06 07:21] VITALS: BP 159/70
[2018-04-06 11:58] VITALS: BP 140/59
[2018-04-06 15:54] VITALS: BP 132/64
[2018-04-06 18:48] VITALS: BP 141/66
[2018-04-07 03:14] VITALS: BP 134/63
[2018-04-07 07:06] LABS: HEMATOCRIT 31.8 % (42.0-52.0); HEMOGLOBIN 10.2 gm/dL (14.0-18.0); MCH 29.7 pg (26.0-34.0); MCHC 32.1 g/dL (28.0-37.0); MCV 92.3 fL (80.0-100.0); RBC 3.45 mil/uL (4.50-6.00); RDW 15.8 % (10.5-14.5); WBC 15.9 thou/uL (4.0-11.0)
[2018-04-07 07:21] LABS: ALBUMIN 1.9 g/dL (3.4-5.0); CALCIUM 8.6 mg/dL (8.5-10.1); CREATININE 2.3 mg/dL (0.7-1.3); POTASSIUM 4.2 mmol/L (3.5-5.1)
[2018-04-07 07:25] VITALS: BP 137/64
[2018-04-07 11:47] VITALS: BP 138/59
[2018-04-07 16:49] VITALS: BP 137/57
[2018-04-07 19:10] VITALS: BP 120/55
[2018-04-08 04:00] VITALS: BP 136/61
[2018-04-08 06:17] LABS: HEMATOCRIT 27.7 % (42.0-52.0); HEMOGLOBIN 8.9 gm/dL (14.0-18.0); MCH 29.4 pg (26.0-34.0); MCHC 32.3 g/dL (28.0-37.0); MCV 90.9 fL (80.0-100.0); RBC 3.05 mil/uL (4.50-6.00); RDW 15.5 % (10.5-14.5); WBC 15.8 thou/uL (4.0-11.0)
[2018-04-08 06:27] LABS: ALBUMIN 1.7 g/dL (3.4-5.0); CALCIUM 8.1 mg/dL (8.5-10.1); CREATININE 2.5 mg/dL (0.7-1.3); PHOSPHORUS 3.8 mg/dL (2.5-4.9); POTASSIUM 3.8 mmol/L (3.5-5.1)
[2018-04-08 08:04] VITALS: BP 121/55
[2018-04-08 11:55] VITALS: BP 139/59
[2018-04-08 15:43] VITALS: BP 134/62
[2018-04-08 19:30] VITALS: BP 134/57
[2018-04-09 03:43] VITALS: BP 130/60
[2018-04-09 05:39] LABS: ALBUMIN 1.6 g/dL (3.4-5.0); CALCIUM 7.9 mg/dL (8.5-10.1); CREATININE 2.7 mg/dL (0.7-1.3); PHOSPHORUS 4.2 mg/dL (2.5-4.9); POTASSIUM 3.6 mmol/L (3.5-5.1)
[2018-04-09 07:46] VITALS: BP 135/55
[2018-04-09 11:00] VITALS: BP 127/57
[2018-04-09 12:07] VITALS: BP 127/57
[2018-04-09 15:29] VITALS: BP 119/54
[2018-04-09 19:40] VITALS: BP 126/49
[2018-04-10 03:37] VITALS: BP 129/56
[2018-04-10 05:29] LABS: HEMATOCRIT 27.5 % (42.0-52.0); HEMOGLOBIN 8.9 gm/dL (14.0-18.0); MCH 29.6 pg (26.0-34.0); MCHC 32.2 g/dL (28.0-37.0); MCV 91.7 fL (80.0-100.0); RDW 15.4 % (10.5-14.5); WBC 17.1 thou/uL (4.0-11.0)
[2018-04-10 05:43] LABS: ALBUMIN 1.6 g/dL (3.4-5.0); PHOSPHORUS 4.7 mg/dL (2.5-4.9); POTASSIUM 4.4 mmol/L (3.5-5.1)
[2018-04-10 08:19] VITALS: BP 109/48
[2018-04-10 12:14] VITALS: BP 117/58
[2018-04-10 16:13] VITALS: BP 134/63
[2018-04-10 19:30] VITALS: BP 124/47
[2018-04-11 03:40] VITALS: BP 130/58
[2018-04-11 05:33] LABS: ALBUMIN 1.6 g/dL (3.4-5.0); CALCIUM 8.1 mg/dL (8.5-10.1); CREATININE 3.4 mg/dL (0.7-1.3); PHOSPHORUS 4.9 mg/dL (2.5-4.9); POTASSIUM 4.2 mmol/L (3.5-5.1)
[2018-04-11 08:18] VITALS: BP 155/65
[2018-04-11 11:55] VITALS: BP 165/75
[2018-04-11 12:15] VITALS: BP 165/75
[2018-04-11 17:37] VITALS: BP 147/53
[2018-04-11 21:00] VITALS: BP 144/60
[2018-04-12 05:00] VITALS: BP 132/58
[2018-04-12 05:54] LABS: HEMATOCRIT 25.5 % (42.0-52.0); HEMOGLOBIN 8.2 gm/dL (14.0-18.0); MCH 29.7 pg (26.0-34.0); MCHC 32.3 g/dL (28.0-37.0); MCV 91.9 fL (80.0-100.0); RBC 2.77 mil/uL (4.50-6.00); RDW 15.7 % (10.5-14.5); WBC 16.2 thou/uL (4.0-11.0)
[2018-04-12 06:13] LABS: MAGNESIUM 2.3 mg/dL (1.8-2.4); PHOSPHORUS 5.5 mg/dL (2.5-4.9)
[2018-04-12 06:14] LABS: ALBUMIN 1.5 g/dL (3.4-5.0); CALCIUM 7.6 mg/dL (8.5-10.1); CREATININE 3.3 mg/dL (0.7-1.3); POTASSIUM 4.7 mmol/L (3.5-5.1); TOTAL BILIRUBIN 0.3 mg/dL (<0.1-1.0); TOTAL PROTEIN 5.6 g/dL (6.4-8.2)
[2018-04-12 07:45] VITALS: BP 111/48
[2018-04-12 11:24] VITALS: BP 132/59
[2018-04-12 15:09] VITALS: BP 131/59
[2018-04-12 19:07] VITALS: BP 143/71
[2018-04-13 03:29] VITALS: BP 141/64
[2018-04-13 07:09] LABS: ALBUMIN 1.5 g/dL (3.4-5.0); CALCIUM 7.9 mg/dL (8.5-10.1); PHOSPHORUS 4.9 mg/dL (2.5-4.9); POTASSIUM 4.4 mmol/L (3.5-5.1)
[2018-04-13 08:05] VITALS: BP 145/61
[2018-04-13 15:31] VITALS: BP 144/66
[2018-04-13 20:30] VITALS: BP 141/63
[2018-04-14] VITALS (9 sets, daily range): BP systolic 129–158; BP diastolic 51–100
[2018-04-14 06:26] LABS: ABSOLUTE NEUTROPHILS 7.7 thou/uL (1.4-8.2); BASOPHILS 0.5 % (0.0-2.0); EOSINOPHILS 2.2 % (0.0-3.0); HEMATOCRIT 24.8 % (42.0-52.0); HEMOGLOBIN 8.1 gm/dL (14.0-18.0); LYMPHOCYTES 11.6 % (24.0-44.0); MCH 29.8 pg (26.0-34.0); MCHC 32.5 g/dL (28.0-37.0); MCV 91.8 fL (80.0-100.0); MONOCYTES 8.9 % (1.0-8.0); PLATELET COUNT 387 thou/uL (150-400); POLYS 76.8 % (36.0-66.0); RBC 2.71 mil/uL (4.50-6.00); RDW 15.8 % (10.5-14.5); WBC 10.1 thou/uL (4.0-11.0)
[2018-04-14 06:45] LABS: ALBUMIN 1.5 g/dL (3.4-5.0); CALCIUM 7.9 mg/dL (8.5-10.1); CREATININE 2.6 mg/dL (0.7-1.3); PHOSPHORUS 4.4 mg/dL (2.5-4.9); POTASSIUM 4.3 mmol/L (3.5-5.1); TOTAL BILIRUBIN 0.2 mg/dL (<0.1-1.0); TOTAL PROTEIN 6.2 g/dL (6.4-8.2)
[2018-04-14 09:59] LABS: APTT 32.4 Seconds (24.5-32.8); INR 1.1; PROTIME 10.8 Seconds (9.3-11.4)
[2018-04-14 12:44] LABS: CLARITY TURBID; COLOR TAN; SOURCE ABSCESS DRAIN FLUID; TOTAL VOLUME 22 mL
[2018-04-14 13:39] LABS: BF NUCLEATED CELLS 551300; BF RBC 251400
[2018-04-14 13:56] LABS: BF MACROPHAGE 0; BF NEUTROPHILS 26
[2018-04-15 04:36] VITALS: BP 150/70
[2018-04-15 05:56] LABS: ALBUMIN 1.5 g/dL (3.4-5.0); CALCIUM 7.8 mg/dL (8.5-10.1); CREATININE 2.2 mg/dL (0.7-1.3); PHOSPHORUS 3.5 mg/dL (2.5-4.9); POTASSIUM 4.6 mmol/L (3.5-5.1)
[2018-04-15 07:40] VITALS: BP 176/80
[2018-04-15] MEDS ORDERED: VANCOMYCIN HCL10 GM PO (09:53)
[2018-04-15] MEDS ORDERED: MEROPENEM 1 GM V1 GM IV (09:53)
[2018-04-15] MEDS ORDERED: HEPARIN SO5000 UNIT/ SUBQ (09:53)
[2018-04-15] MEDS ORDERED: NOVOLOG100 UNIT/1 SUBQ ×2 (09:54)
[2018-04-15] MEDS ORDERED: LANTUS100 UNIT/M SUBQ (09:54)
[2018-04-15] MEDS ORDERED: HYDROCODON-ACE1 EAC7 PO (09:54)
[2018-04-15 10:18] VITALS: BP 176/80
[2018-04-15 12:34] VITALS: BP 176/80
== END 2018-04-15 12:32 | DRG 871 ==
LOC: ER 09:12 → 2N 12:14 → EROBS 12:14 → 2N 13:22 → ICU 04-01 17:38 → 3W 04-02 10:39 → ICU 04-02 16:37 → 3W 04-15 12:32
PROVIDERS: Hospitalist; Internal Medicine Nephrology; Internal Medicine Pulmonary Disease; Physician Assistant; Specialist; Surgery
PROC: 0DJD8ZZ Inspection of Lower Intestinal Tract, Via Natural or Artificial Opening Endoscopic (ICD-10-PCS; principal; 2018-04-12)
PROC: 0W9F30Z Drainage of Abdominal Wall with Drainage Device, Percutaneous Approach (ICD-10-PCS; 2018-04-14)
DX: A41.9 Sepsis, unspecified organism (principal); E43 Unspecified severe protein-calorie malnutrition; K65.9 Peritonitis, unspecified; A04.72 Enterocolitis due to Clostridium difficile, not specified as recurrent; N17.9 Acute kidney failure, unspecified; J98.11 Atelectasis; K56.7 Ileus, unspecified; K57.20 Diverticulitis of large intestine with perforation and abscess without bleeding; Z68.42 Body mass index [BMI] 45.0-49.9, adult; R18.8 Other ascites; N18.9 Chronic kidney disease, unspecified; E11.22 Type 2 diabetes mellitus with diabetic chronic kidney disease; E11.42 Type 2 diabetes mellitus with diabetic polyneuropathy; I12.9 Hypertensive chronic kidney disease with stage 1 through stage 4 chronic kidney disease, or unspecified chronic kidney disease; F32.9 Major depressive disorder, single episode, unspecified; E66.9 Obesity, unspecified; E11.621 Type 2 diabetes mellitus with foot ulcer; L89.610 Pressure ulcer of right heel, unstageable; E11.51 Type 2 diabetes mellitus with diabetic peripheral angiopathy without gangrene; J44.9 Chronic obstructive pulmonary disease, unspecified; K21.9 Gastro-esophageal reflux disease without esophagitis; E78.5 Hyperlipidemia, unspecified; N31.9 Neuromuscular dysfunction of bladder, unspecified; G47.33 Obstructive sleep apnea (adult) (pediatric); D64.9 Anemia, unspecified; Z87.891 Personal history of nicotine dependence; Z89.512 Acquired absence of left leg below knee; Z88.0 Allergy status to penicillin; Z91.013 Allergy to seafood
CPT/HCPCS: 10078; 10081; 10203; 10779; 10879; 27000; 62110; 62900; 70005

== ENCOUNTER → 2018-04-27 | Outpatient (CLI) | payer OTHER ==
[~2018-04-27] MED LIST changes: +HEPARIN SO5000 UNIT/ SUBQ; +HYDROCODON-ACE1 EAC7 PO; +LANTUS100 UNIT/M SUBQ; +MEROPENEM 1 GM V1 GM IV; +NOVOLOG100 UNIT/1 SUBQ; +VANCOMYCIN HCL10 GM PO
== END ==
LOC: CAT 08:16
DX: Z09 Encounter for follow-up examination after completed treatment for conditions other than malignant neoplasm (principal); J90 Pleural effusion, not elsewhere classified

== ENCOUNTER → 2018-05-11 | Outpatient (CLI) | payer OTHER | LOC: ULTRA 09:03 | DX: J90 Pleural effusion, not elsewhere classified (principal); K57.30 Diverticulosis of large intestine without perforation or abscess without bleeding; J98.11 Atelectasis ==

== ENCOUNTER → 2018-09-05 | Outpatient (CLI) | payer OTHER ==
--- NOTE | ~2018-09-05 | SLE ---
[facility] [place] [address] POLYSOMNOGRAPHY STUDY Name: HILDA SKAGGS Room #: [facility]#: [id number] Admission: 09/05/18 Attend Phys: Romeo New MD Discharge: Date of : 58 Report #: [id number] THIS REPORT FOR: //name// CC: Romeo June MD DATE OF SERVICE: 09/05/2018 SLEEP STUDY ATTENDING PHYSICIAN: Magdaleno June MD The patient is a 57 years old who weighs 350 pounds with a BMI of 42.6. The patient has severe subjective hypersomnia with an Austin score of 24 out of a maximum of 24. The patient underwent a split night sleep study at [facility]. During the night study, the patient spent 399 minutes in bed and slept for 302 minutes with a sleep efficiency of 76%. Sleep latency was 4.1 minutes with a REM latency of 22.1 minutes, which was short. Overall, sleep architecture showed normal stage I and stage 2 sleep, increased slow wave sleep, which was 33% of the total sleep time and normal REM sleep, which is 22% of the total sleep time. During the initial diagnostic portion of the study, the patient spent 399 minutes in bed and slept for 302 minutes. During that time, the patient had 9 central apneas and 78 hypopneas. There were no obstructive or mixed apneas seen. The patient's apnea-hypopnea index was 17.3 per hour with a REM index of 14.3 per hour and a supine index of 17.3 per hour. EKG monitoring revealed an average heart rate of 59 beats per minute with a maximum of 66 beats per minute. No sustained arrhythmias were observed. Occasional PVC' seen. The patient had a left below knee amputation and right leg was wrapped from the foot to the knee as a result leg movements were not measured. Nocturnal oximetry study during the diagnostic portion revealed an average oxygen saturation of 94%, the lowest of 80%. 11 minutes were spent in an oxygen saturation between 80% and 89%. The patient met the criteria for CPAP initiation. It was started at 5 cm water and kept at 5 cm water. At the final pressure, the patient slept for 197 minutes. The patient's AHI was reduced to 7 per hour. The patient had supine sleep throughout as well as REM sleep was observed. The patient's oxygen [facility] [address] [place] [address] POLYSOMNOGRAPHY STUDY Name: HILDA SKAGGS [id number] Admission: 09/05/18 Attend Phys: Romeo New MD Discharge: Date of : 58 Report #: [id number] saturation remained above 91%. Would recommend 7 cm H20 prerssure. IMPRESSION: 1. Moderate sleep apnea-hypopnea syndrome at an AHI of 17 per hour. 2. Mild nocturnal hypoxia secondary to obstructive sleep apnea, but resolved with CPAP. RECOMMENDATIONS: 1. The patient should be placed on CPAP at 7 cm water. The patient's AHI at 5 cm of water was 7 per hour. 2. Follow up in 4-6 weeks to assess compliance with CPAP and to document clinical improvement. 3. Weight loss is strongly advised. 4. Avoid [employer] depressants. 5. Cautioned regarding driving until symptoms of sleep apnea resolve with the use of CPAP. <ELECTRONICALLY SIGNED> By: Romeo New MD 09/07/18 1611 1356 1437 Romeo New MD /nt
== END ==
LOC: SLEEPLAB 09-04 10:50
DX: G47.33 Obstructive sleep apnea (adult) (pediatric) (principal); R09.02 Hypoxemia

== ENCOUNTER → 2018-10-19 | Outpatient (CLI) | payer OTHER ==
[2018-10-19 10:00] LABS: CREATININE 2.3 mg/dL (0.7-1.3)
== END ==
LOC: CAT 09:00
PROVIDERS: Surgery
DX: K57.30 Diverticulosis of large intestine without perforation or abscess without bleeding (principal); M47.815 Spondylosis without myelopathy or radiculopathy, thoracolumbar region; Z90.49 Acquired absence of other specified parts of digestive tract; L02.91 Cutaneous abscess, unspecified

== ENCOUNTER 2018-10-24 16:55 | Emergency (ER) | payer OTHER ==
[~2018-10-24] VITALS: Ht 193 cm; Wt 167.4 kg
[2018-10-24 17:34] VITALS: BP 198/84
== END 2018-10-24 19:10 ==
LOC: ER 16:55
DX: H60.91 Unspecified otitis externa, right ear (principal); F17.210 Nicotine dependence, cigarettes, uncomplicated; E78.5 Hyperlipidemia, unspecified; G47.30 Sleep apnea, unspecified; J44.9 Chronic obstructive pulmonary disease, unspecified; E11.40 Type 2 diabetes mellitus with diabetic neuropathy, unspecified; K21.9 Gastro-esophageal reflux disease without esophagitis; E66.9 Obesity, unspecified; Z68.41 Body mass index [BMI] 40.0-44.9, adult; E11.22 Type 2 diabetes mellitus with diabetic chronic kidney disease; I13.0 Hypertensive heart and chronic kidney disease with heart failure and stage 1 through stage 4 chronic kidney disease, or unspecified chronic kidney disease; I50.9 Heart failure, unspecified; N18.9 Chronic kidney disease, unspecified; I73.9 Peripheral vascular disease, unspecified; Z79.4 Long term (current) use of insulin; Z88.0 Allergy status to penicillin; Z91.013 Allergy to seafood; Z86.73 Personal history of transient ischemic attack (TIA), and cerebral infarction without residual deficits

== ENCOUNTER → 2019-01-15 | Outpatient (CLI) | payer OTHER ==
[~2019-01-15] VITALS: Ht 193 cm; Wt 166.9 kg
[~2019-01-15] MED LIST changes: +GLUTOSE GEL 1515 G1 PO; +LEVEMIR SUBQ; +METHENAMINE HIPP1 G1 PO; +ONDANSETRON HCL4 M2 PO; +PROBIOTIC1 EAC1 PO; +PROTONIX40 M1 PO
--- NOTE | 2019-01-17 10:07 | PATH ---
[facility] [place] [address] PATHOLOGY RPT PROCEDURE Name: HILDA SKAGGS Room #: REG [facility] M.R.#: [id number] ������������������ Admission: 01/15/19 ������������������ Date of : 58 Discharge: Report #: [id number] Path Case #: [id number] [facility] Accession Number: [id number] . 01 Material submitted: . PART A: BX DUODENUM R/O CELIAC DISEASE PART B: BX GASTRIC ANTRUM R/O H.PYLORI PART C: BX CECAL ULCER AND INFLAMMATION PART D: POLYP AT HEPATIC FLEXURE . 01 Clinical history: . Pre-OP DX: Right side abdominal pain Post-OP DX: Hiatal hernia, gastritis, cecal ulcer, colon polyp . 02 Diagnosis: A. Small bowel mucosa, duodenum rule out celiac disease, endoscopic biopsy: - No significant diagnostic abnormalities present. - Negative for villous blunting or increase in intraepithelial lymphocytes. . B. Gastric mucosa, gastric antrum rule out H. pylori, endoscopic biopsy: - Mild reactive gastropathy. - Negative for intestinal metaplasia or atrophy. - Negative for Helicobacter pylori (properly controlled immunohistochemical stain performed). . C. Large intestinal mucosa, cecal ulcer and inflammation, endoscopic biopsy: - Ulceration along with mild to moderate active colitis. . D. Polyp, at hepatic flexure, endoscopic biopsy: - Tubular adenoma. - Negative for high grade dysplasia. LBQ/01/16/2019 . 02 Comment: Part C: Examination shows fragments of ulcer, granulation tissue (ulcer base), surface epithelial acute inflammation, cryptitis, as well as crypt abscess formation. The lamina propria cellularity is markedly increased. There are no granulomata, or viral inclusions present. One fragment appears to be completely spared by the process. Subtle architectural abnormalities are present. Overall, the differential diagnosis includes inflammatory bowel disease (Crohn's disease as well as ulcerative colitis), infectious-type of colitis, acute self-limited episode of colitis, medication-induced colitis, as well as acute diverticulitis. Please correlate clinically and follow-up as indicated. [address] [address] PATHOLOGY RPT PROCEDURE Name: HILDA SKAGGS Room #: REG CL [place]#: [id number] ������������������ Admission: 01/15/19 ������������������ Date of : 58 Discharge: Report #: [id number] Path Case #: [id number] (IUV/db; 01/16/2019) . 02 Electronically signed: . Emma Hernandez MD, Pathologist NPI- [id number] . 01 Gross description: . A. Received in formalin labeled "Pankaj, Hilda, BX duodenum, rule out celiac disease," is a single segment of giraldo soft tissue measuring 0.6 cm in maximum dimension. The specimen is entirely submitted in cassette A1. . B. Received in formalin labeled "Pankaj, Hilda, BX gastric antrum, rule out H. pylori," are 2 segments of giraldo soft tissue measuring 0.9 x 0.2 x 0.2 cm in aggregate dimensions and ranging from 0.4 to 0.5 cm in maximum dimension. The specimen is submitted entirely in cassette B1. . C. Received in formalin labeled "Pankaj, Hilda, BX cecal ulcer; Inflammation," are 4 segments of giraldo soft tissue measuring 0.9 x 0.7 x 0.2 cm in aggregate dimensions and ranging from 0.1 to 0.3 cm in maximum dimension. The specimen is submitted entirely in cassette C1. . D. Received in formalin labeled "Pankaj, Hilda, polyp at hepatic flexure," are 3 segments of giraldo soft tissue measuring 0.8 x 0.6 x 0.2 cm in aggregate dimensions and ranging from 0.2 to 0.5 cm in maximum dimension. The specimen is submitted entirely in cassette D1. (TSD; 01/15/2019) TOB/TOB . 02 Pathologist provided ICD-10: K31.9, K52.9, D12.3 . 02 CPT . 276537, 626044, 415778, 773397, I64835 Specimen Comment: A courtesy copy of this report has been sent to Specimen Comment: [phone], . Specimen Comment: Report sent to / DR CONWAY Specimen Comment: A duplicate report has been generated due to demographic updates. Performed at: [address], [place], [place] [id number] MD Chandler Mendes MD Phone: [phone] Performed at: [address] [id number] MD Emma Hernandez MD Phone: [phone]
== END | disposition home or self-care (01) ==
LOC: GI 09:48
DX: D12.3 Benign neoplasm of transverse colon (principal); K52.9 Noninfective gastroenteritis and colitis, unspecified; K57.30 Diverticulosis of large intestine without perforation or abscess without bleeding; K31.9 Disease of stomach and duodenum, unspecified; K29.70 Gastritis, unspecified, without bleeding; K44.9 Diaphragmatic hernia without obstruction or gangrene; K64.8 Other hemorrhoids; I11.0 Hypertensive heart disease with heart failure; I50.9 Heart failure, unspecified; J44.9 Chronic obstructive pulmonary disease, unspecified; E78.00 Pure hypercholesterolemia, unspecified; G47.33 Obstructive sleep apnea (adult) (pediatric); K21.9 Gastro-esophageal reflux disease without esophagitis; E11.9 Type 2 diabetes mellitus without complications; F03.90 Unspecified dementia, unspecified severity, without behavioral disturbance, psychotic disturbance, mood disturbance, and anxiety; Z79.4 Long term (current) use of insulin; Z79.899 Other long term (current) drug therapy; Z98.890 Other specified postprocedural states; Z88.0 Allergy status to penicillin
CPT/HCPCS: 62110; 62900

== ENCOUNTER → 2019-01-24 | Outpatient (CLI) | payer OTHER ==
[2019-01-24 09:22] LABS: CREATININE 2.9 mg/dL (0.7-1.3)
== END ==
LOC: CAT 01-19 10:58
PROVIDERS: Internal Medicine Gastroenterology
DX: K52.9 Noninfective gastroenteritis and colitis, unspecified (principal); K31.89 Other diseases of stomach and duodenum; K57.30 Diverticulosis of large intestine without perforation or abscess without bleeding; N32.89 Other specified disorders of bladder; M25.78 Osteophyte, vertebrae; Z90.49 Acquired absence of other specified parts of digestive tract

== ENCOUNTER 2019-07-12 08:35 | Emergency (ER) | payer OTHER ==
[~2019-07-12] VITALS: Ht 193 cm; Wt 148.3 kg
[2019-07-12 09:11] LABS: CALCIUM 9.2 mg/dL (8.5-10.1); CREATININE 4.7 mg/dL (0.7-1.3)
[2019-07-12 09:12] LABS: POTASSIUM 4.6 mmol/L (3.5-5.1)
[2019-07-12 09:17] LABS: ALBUMIN 2.3 g/dL (3.4-5.0); TOTAL BILIRUBIN 0.5 mg/dL (<0.1-1.0)
[2019-07-12 09:50] LABS: HEMATOCRIT 32.2 % (42.0-52.0); HEMOGLOBIN 10.4 gm/dL (14.0-18.0); MCH 30.3 pg (26.0-34.0); MCHC 32.1 g/dL (28.0-37.0); MCV 94.4 fL (80.0-100.0); RBC 3.41 mil/uL (4.50-6.00); RDW 15.3 % (10.5-14.5)
[2019-07-12 10:21] LABS: ABSOLUTE NEUTROPHILS 9.6 thou/uL (1.4-8.2); ANISOCYTOSIS 1+; METAMYELOCYTES 1 %; MYELOCYTES 1 %; PLATELET COUNT 327 thou/uL (150-400)
[2019-07-12 11:36] VITALS: BP 133/73
--- NOTE | 2019-07-12 16:41 | EKG ---
[place] [address] [facility] [place] [address] ELECTROCARDIOGRAM REPORT Name: HILDA SKAGGS [id number] ������������������ Admission: 07/12/19 ������������������ Attend Phys: Discharge: 07/12/19 ������������������ Date of : 58 Report #: [id number] ����������������������������������������������������������������� [id number] THIS REPORT FOR: //name// [facility] ED Test Date: 2019-07-12 Test Time: 09:17:28 Pat Name: HILDA SKAGGS Department: Room: Gender: M Civil Engineer'S Aide: : 1960 Requested By: Josy Vásquez Order Number: [id number] MD: Joao Kauffman Measurements Intervals [place] Rate: 75 P: 52 NM: 229 QRS: -34 QRSD: 179 T: -10 QT: 434 QTc: 485 Interpretive Statements Sinus rhythm Prolonged NM interval Nonspecific intraventricular conduction delay Baseline wander in lead(s) V2 Compared to ECG 01/18/2018 23:45:05 Electronically Signed On 07-12-2019 16:41:47 CDT by Joao Kauffman [email or web address] ��������������������������������������������� <ELECTRONICALLY SIGNED> ���������������������������������������� By: Joao Kauffman MD ��������������������������������������������� 07/12/19 1641 6 6 Joao Kauffman MD /HOOD
== END 2019-07-12 12:51 | disposition home or self-care (01) ==
LOC: ER 08:35
PROVIDERS: Emergency Medicine Emergency Medical Services
DX: R11.2 Nausea with vomiting, unspecified (principal); E11.22 Type 2 diabetes mellitus with diabetic chronic kidney disease; I13.0 Hypertensive heart and chronic kidney disease with heart failure and stage 1 through stage 4 chronic kidney disease, or unspecified chronic kidney disease; I50.9 Heart failure, unspecified; N18.9 Chronic kidney disease, unspecified; E11.40 Type 2 diabetes mellitus with diabetic neuropathy, unspecified; E78.5 Hyperlipidemia, unspecified; J44.9 Chronic obstructive pulmonary disease, unspecified; G47.30 Sleep apnea, unspecified; K21.9 Gastro-esophageal reflux disease without esophagitis; F17.210 Nicotine dependence, cigarettes, uncomplicated; Z86.73 Personal history of transient ischemic attack (TIA), and cerebral infarction without residual deficits; Z86.14 Personal history of Methicillin resistant Staphylococcus aureus infection; Z89.512 Acquired absence of left leg below knee; Z79.4 Long term (current) use of insulin; Z99.2 Dependence on renal dialysis; Z88.0 Allergy status to penicillin; Z91.013 Allergy to seafood

== ENCOUNTER 2019-08-13 14:40 | Inpatient (IN) | payer OTHER ==
[~2019-08-13] VITALS: Ht 193 cm; Wt 149.7 kg
--- NOTE | ~2019-08-13 | H ---
Former[facility] [place] [address] [place] [address] HISTORY AND PHYSICAL Name: HILDA SKAGGS Room #: 170-9 ADM IN M.R.#: [id number] Admission: 08/13/19 Attend Phys: Erna Huddleston MD Discharge: Date of : 58 Report #: [id number] THIS REPORT FOR: //name// CC: Magdaleno Huddleston DATE OF SERVICE: 08/13/2019 PRIMARY CARE PHYSICIAN: Dr. Marti, gravel wheeler at [facility], but the patient's primary care physician is in [facility]. CHIEF COMPLAINT: Pleuritic chest pain for past 2 weeks. 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 The patient also has had a brainstem stroke in the past as well as congestive heart failure, hypertension, diabetes mellitus type 2, anemia of chronic disease for which he gets iron infusion at [facility] with a dialysis. The patient informs me that he has been having this pleuritic chest pain for past 2 weeks and every time he takes deep breaths, his ribs hurt anteriorly as well as in the back and he has been telling to his longterm staff and yesterday, the pain got so bad that they gave him a breathing treatment and this morning also been continuously got worse and breathing treatment, did not help the pain at all. He went to dialysis today and the pain was 10/10 and he could not breathe and therefore, he was sent here to the hospital for further evaluation. The patient denies any fever, shaking chills or night sweats. Denies any sputum production or hemoptysis. Denies any exposure to infection. Denies any blood clots in the past and he informs me that he does not recall having any history of peptic ulcer disease or bleeding ulcers and has not had any nausea, vomiting or diarrhea. He does have bowel movements 1-2 a day and the nurses clean him up, so he has absolutely no idea what color the stool is. He has not had any chest pain, chest pressure or referred pain to the shoulder, jaw or abdomen. Pleuritic chest pain only is the issue. The patient denies any associated abdominal pain or any weakness or numbness of any part of the body other than the paralysis he has for both lower extremities. PAST MEDICAL HISTORY: Significant for, 1. Diabetes mellitus type for last several years. 2. Anemia of chronic disease. 3. Hypertension. 4. Congestive heart failure. 5. Coronary artery disease. 6. Brainstem CVA. 7. Spinal cord accident. Former[facility] [address] [place] [address] HISTORY AND PHYSICAL Name: HILDA SKAGGS Room #: 170-9 ADM IN .R.#: [id number] Admission: 08/13/19 Attend Phys: Erna Huddleston MD Discharge: Date of : 58 Report #: [id number] 8. End-stage renal disease, on dialysis. 9. Urinary tract infection, recurrent. ALLERGIES: 1. THE PATIENT IS ALLERGIC TO PENICILLIN. 2. LANTUS INSULIN AND POTASSIUM HAS BEEN ASSOCIATED WITH SWELLING OF EDEMA OF THE WHOLE BODY AND KIDNEY FAILURE, MAINLY. PERSONAL AND SOCIAL HISTORY: Smoked up until 2 years ago and 1 pack per day and none since then. Quit alcohol. Does not take any alcohol or drugs also. His durable power of family law attorney is Chelsie Sánchez who is the [facility] of medical unit. She is the only person he trusts and he does not want anyone else to speak on his behalf and he is full code. PAST SURGICAL HISTORY: Significant for hip surgery at the age of 12 years. At that time, he also got blood transfusion. He also has had cholecystectomy and left foot surgery, right foot two toes amputated and eye surgery. CODE STATUS: Full code. CURRENT MEDICATIONS: 1. Venofer infusion with hemodialysis. 2. Lisinopril. 3. Lipitor. 4. Methenamine. 5. Coreg. 6. Zofran. 7. Clopidogrel. 8. Bentyl. 9. Pramipexole. 10. Flonase. 11. Flomax. 12. Lasix. 13. Trazodone. 14. Lisinopril. 15. Levemir. 16. Humalog. FAMILY HISTORY: Father had prostate cancer and mother has diabetes, but he is estranged from his family and they have disowned him as the patient informs me and he does not know much about their health history anymore. REVIEW OF SYSTEMS: Ten-point review of system was done and please see HPI above. PHYSICAL EXAMINATION: Former[facility] [address] [place] [address] HISTORY AND PHYSICAL Name: HILDA SKAGGS Room #: 170-9 [facility] M.R.#: [id number] Admission: 08/13/19 Attend Phys: Erna Huddleston MD Discharge: Date of : 58 Report #: [id number] VITAL SIGNS: Temperature 36.8, heart rate 74, respiration 14, blood pressure 99/45, pulse oximetry 97% when he presented to the ER at 1444 hours. At the time of examination, his heart rate was 70, respirations 21, blood pressure 113/60, and pulse oximeter 98% on room air. GENERAL: Alert and oriented to time, place and person, very pleasant 58-year-old gentleman who is bedbound and is in no acute distress. HEENT: Normocephalic, atraumatic. Pupils are equally round and reactive to light. Conjunctivae are clear, but pale. Sclerae nonicteric. Oropharynx is clear. Mucous membranes are moist. NECK: Supple, no JVD, no lymphadenopathy. HEART: S1, S2, regular. No murmur, no S3, no S4. LUNGS: Clear to auscultation bilaterally without any crackles or wheezes; however, deep breathing causes severe pain and so he is basically having shallow breathing. ABDOMEN: Soft, nontender, nondistended, normal active bowel sounds and has a well-healed scar of prior surgeries noted. EXTREMITIES: The patient has amputation in both lower extremities and has some edema both lower extremities. NEUROLOGIC: Paraparesis of both lower extremities. Otherwise, cranial nerves 2-12 are intact. LABORATORY DATA: WBC 8.6, hemoglobin 7.5, hematocrit 23.2, platelet count 177, segmented neutrophil 79.1. Chemistries indicate sodium 138, potassium 2.9, chloride 106, bicarbonate 22, anion gap 10, BUN 15, creatinine 2.2, glucose 106, calcium 8.1, magnesium 1.7, total bilirubin 0.5, direct bilirubin 0.2, AST 13, ALT 5, alkaline phosphatase 92. Troponin I is less than 0.06. Total protein is 6.4, albumin 2.2 and lipase 53. V/Q scan was done in the Emergency Room and it indicates a high probability V/Q scan for pulmonary embolism involving right upper lobe and superior segment of right lower lobe and decreased perfusion of the left lung, also noted as well. Electrocardiogram indicates a normal sinus rhythm with right bundle branch block as well as left anterior fascicular block, otherwise no significant changes noted as compared to prior EKG. ASSESSMENT AND PLAN: 1. Pulmonary embolism. 2. End-stage renal disease. 3. Hypokalemia and hypomagnesemia post-dialysis. 4. Diabetes mellitus type 2. 5. 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 6. History of congestive heart failure. [address] [address] HISTORY AND PHYSICAL Name: HILDA SKAGGS Room #: 170-9 ADM IN [facility]#: [id number] Admission: 08/13/19 Attend Phys: Erna Huddleston MD Discharge: Date of : 58 Report #: [id number] 7. Obesity with body mass index of 32.9. 8. Anemia of chronic disease, requiring iron infusion outpatient. 9. The patient wishes to be full code and DVT prophylaxis. The patient is going to be on a heparin drip. GI prophylaxis, the patient will be on Pepcid renal dosing. PLAN: 1. The patient is being started on heparin drip in the Emergency Room. I plan to continue the same and will go ahead and have Nephrology consult for his end-stage renal disease and hemodialysis as he may require hemodialysis during this hospital stay. We will go ahead and consult Hematology/Oncology as well and the blood drawn in the Emergency Room. We will go ahead and add hypercoagulation panel to that and the patient has not had any history of Hemoccult stool positive, but we will go ahead and send stool for Hemoccult testing and we will also get a venous Doppler for both lower extremities to make sure he does not have any DVTs and the patient is bedbound. 2. The patient has a decubitus ulcer for past 3 months since he was discharged from [facility] and so we will go ahead and get the wound care team involved as well. 3. Full code order has been written. 4. Currently, the patient is afebrile and has not had any history of fever or chills and so I would not start any antibiotics and the patient; however, may have pulmonary infarction, early infiltrate in the right lower lobe is indicated. So we will consider starting Rocephin IV, but I think the chest x-ray abnormality secondary to pulmonary infarction rather than pneumonia as the patient has review of systems completely negative for any pneumonia, any infection and there is no leukocytosis and plan of care have been discussed with the patient. By: 43 21 Erna Huddleston MD /nt
[2019-08-13 14:44] VITALS: BP 99/45
[2019-08-13 15:08] LABS: ANION GAP 10 mmol/L (7-16); BUN 15 mg/dL (7-18); CALCIUM 8.1 mg/dL (8.5-10.1); CHLORIDE 106 mmol/L (98-107); CO2 22 mmol/L (21-32); CREATININE 2.2 mg/dL (0.7-1.3); GLUCOSE 106 mg/dL (74-106); SODIUM 138 mmol/L (136-145)
[2019-08-13 15:09] LABS: POTASSIUM 2.9 mmol/L (3.5-5.1)
[2019-08-13 15:17] LABS: TROPONIN-I <0.06 ng/mL (<0.06)
[2019-08-13 15:30] LABS: ALBUMIN 2.2 g/dL (3.4-5.0); DIRECT BILIRUBIN 0.2 mg/dL (<0.1-0.3); LIPASE 53 U/L (73-393); SGOT 13 U/L (15-37); TOTAL BILIRUBIN 0.5 mg/dL (<0.1-1.0); TOTAL PROTEIN 6.4 g/dL (6.4-8.2)
[2019-08-13 15:39] LABS: SGPT < 5 U/L (30-65)
--- NOTE | 2019-08-13 17:20 | EKG ---
[address] [address] [place] [address] ELECTROCARDIOGRAM REPORT Name: HILDA SKAGGS Room #: [facility]#: [id number] Admission: 08/13/19 Attend Phys: Discharge: Date of : 58 Report #: [id number] THIS REPORT FOR: //name// [facility] ED Test Date: 2019-08-13 Test Time: 14:41:14 Pat Name: HILDA SKAGGS Department: Room: Gender: M Rn Lvn: : 1960 Requested By: Flavio Kowalski Order Number: [id number] MD: Shashi Conley Measurements Intervals [place] Rate: 76 P: -2 [place]: 183 QRS: -71 QRSD: 172 T: -3 QT: 489 QTc: 551 Interpretive Statements Sinus rhythm RBBB and LAFB Compared to ECG 07/12/2019 09:17:28 No significant change was found Electronically Signed On 08-13-2019 17:20:36 CDT by Shashi Conley [email or web address] <ELECTRONICALLY SIGNED> By: Shashi Conley MD, FACC 08/13/19 1720 1441 1441 Shashi Conley MD, FACC /EPI
[2019-08-13 18:15] LABS: ABSOLUTE NEUTROPHILS 6.8 thou/uL (1.4-8.2); BASOPHILS 0.6 % (0.0-2.0); EOSINOPHILS 0.3 % (0.0-3.0); HEMATOCRIT 23.2 % (42.0-52.0); HEMOGLOBIN 7.5 gm/dL (14.0-18.0); LYMPHOCYTES 12.8 % (24.0-44.0); MCH 30.7 pg (26.0-34.0); MCHC 32.1 g/dL (28.0-37.0); MCV 95.8 fL (80.0-100.0); MONOCYTES 7.2 % (1.0-8.0); PLATELET COUNT 177 thou/uL (150-400); POLYS 79.1 % (36.0-66.0); RBC 2.43 mil/uL (4.50-6.00); RDW 16.7 % (10.5-14.5); WBC 8.6 thou/uL (4.0-11.0)
[2019-08-13 20:04] VITALS: BP 113/60
[2019-08-13 20:22] VITALS: BP 109/51
[2019-08-13 20:41] LABS: INR 1.2; PROTIME 12.2 Seconds (9.3-11.4)
[2019-08-13 21:30] VITALS: BP 120/63
[2019-08-13 21:54] LABS: HEMATOCRIT 37.8 % (42.0-52.0); MCH 30.3 pg (26.0-34.0); MCV 94.7 fL (80.0-100.0); RBC 3.99 mil/uL (4.50-6.00); RDW 16.5 % (10.5-14.5); WBC 12.9 thou/uL (4.0-11.0)
[2019-08-13 21:59] LABS: HEMOGLOBIN 12.1 gm/dL (14.0-18.0)
[2019-08-13 23:27] LABS: INR 1.1; PROTIME 11.3 Seconds (9.3-11.4)
[2019-08-13 23:35] LABS: APTT 111.9 Seconds (24.5-32.8)
[2019-08-14] MEDS ORDERED: PROTONIX40 M2 PO (03:12)
[2019-08-14] MEDS ORDERED: RENVELA800 MG PO (03:17)
[2019-08-14] MEDS ORDERED: BACLOFEN5 MG PO (03:18)
[2019-08-14] MEDS ORDERED: LEVEMIR100 UNIT/1 SUBQ (03:22)
[2019-08-14] MEDS ORDERED: VITAMIN C500 M1 PO (03:25)
[2019-08-14] MEDS ORDERED: FUROSEMIDE 40 M40 MG PO (03:27)
[2019-08-14] MEDS ORDERED: LORATIDINE 10 M10 M1 PO (03:28)
--- NOTE | 2019-08-14 03:33 | NUR ---
ADMIT:PT ADMITTED FROM ED WIH CHEST PAIN,ABNORMAL VQ SCAN ADN HYPOKALEMIA.PT S/P DIALYSIS AT [facility].PT ARRIVED TO UNIT VIA CART W/HEPARIN INFUSING AT 18.37 ML/HR AND MAGNESIUM.PT DENIES CHEST PAIN UPON ARRIVAL BUT DO C/O INTERMITTENT PAIN ESPECIALLY WHEN HE COUGHS.PT A/OX4.RESIDES AT [facility].SKIN HAS WOUNDS TO SACRUM AND RIGHT HEEL,SEE PICTURES IN THE CHART.WOUND CARE HAS BEEN CONSULTED,WOUND DRESSED ACCORDINGLY.NATEKA NOTED.PT STATED THAT HE IS PARAPLEGIC,UNABLE TO MOVE FROM WAIST DONE.FISHMAN TO DD.MAKES URINE BUT NOT ALOT PER PT.DIALYSIS TUNNELD CATHETER TO RIGHT CHEST W/DRESSING.VSS.SR W/BBB ON MONITOR.ON RA.MEDS RECONCILED PER PT ADN [facility] MED LIST.NO CONCERNS VOICED AT THIS TIME.WILL CONT TO MONITOR PER POC.
[2019-08-14 05:04] VITALS: BP 125/68
[2019-08-14 07:26] LABS: HEMATOCRIT 35.8 % (42.0-52.0); HEMOGLOBIN 11.5 gm/dL (14.0-18.0); MCH 30.4 pg (26.0-34.0); RBC 3.77 mil/uL (4.50-6.00); RDW 16.7 % (10.5-14.5)
[2019-08-14 07:39] LABS: CALCIUM 8.9 mg/dL (8.5-10.1); CREATININE 4.3 mg/dL (0.7-1.3); MAGNESIUM 2.2 mg/dL (1.8-2.4); POTASSIUM 4.1 mmol/L (3.5-5.1)
[2019-08-14 07:57] VITALS: BP 141/71
--- NOTE | 2019-08-14 10:20 | NUR ---
met with patient he admits with Cp and reports he has clots in lungs. Patient has no emergency contact he makes his decisions. Patient is ltc resident of [facility]. he dializes MWF at [place] [facility]. Patient has hx of LTAC at [facility] He reports good care at both. Plan return to [facility] once stable.
--- NOTE | 2019-08-14 10:41 | NUR ---
FAXED CLINICAL UPDATE TO [facility] RECEIVED CONFIRMATION ADN LEFT MSG WITH JUAN IN ADM . DP TO FOLLOW.
[2019-08-14 11:24] VITALS: BP 133/69
--- NOTE | 2019-08-14 13:58 | EKG ---
[address] [address] ELECTROCARDIOGRAM REPORT Name: HILDA SKAGGS Room #: 206-P ADM IN M.R.#: [id number] Admission: 08/13/19 Attend Phys: Erna Huddleston MD Discharge: Date of : 58 Report #: [id number] THIS REPORT FOR: //name// [facility] Test Date: 2019-08-14 Test Time: 09:46:10 Pat Name: HILDA SKAGGS Department: Room: 206 P Gender: M Ambulance Officer: MONIK : 1960 Requested By: Erna Huddleston Order Number: [id number] MD: Joao Kauffman Measurements Intervals [place] Rate: 70 P: -23 UT: 221 QRS: -65 QRSD: 169 T: -7 QT: 474 QTc: 512 Interpretive Statements Sinus rhythm Prolonged [place] interval RBBB and LAFB Compared to ECG 08/13/2019 14:41:14 First degree AV block now present Electronically Signed On 08-14-2019 13:58:09 CDT by Joao Kauffman [email or web address] <ELECTRONICALLY SIGNED> By: Joao Kauffman MD 08/14/19 1358 Joao Kauffman MD /HOOD
[2019-08-14 15:34] VITALS: BP 136/58
--- NOTE | 2019-08-14 18:46 | NUR ---
PT ON HEPARIN GTT, CHANGES MADE PER PROTOCOL, SEE FLOW SHEET. PT HAS SRAVANTHI, WOUNDS FROM AUDIO VISUAL AIDE ADDRESSED BY WOUND CARE, PT REFUSED TURNS SEVERAL TIMES TODAY. EATING WELL, RIGHT FOOT IN BOOT.
[2019-08-14 20:44] VITALS: BP 130/39
[2019-08-15 04:00] VITALS: BP 122/53
[2019-08-15 05:27] LABS: HEMATOCRIT 31.3 % (42.0-52.0); HEMOGLOBIN 10.2 gm/dL (14.0-18.0); MCH 30.7 pg (26.0-34.0); MCHC 32.6 g/dL (28.0-37.0); MCV 94.2 fL (80.0-100.0); RBC 3.32 mil/uL (4.50-6.00); RDW 16.7 % (10.5-14.5); WBC 9.7 thou/uL (4.0-11.0)
[2019-08-15 05:47] LABS: CALCIUM 8.7 mg/dL (8.5-10.1); CREATININE 4.9 mg/dL (0.7-1.3); MAGNESIUM 2.2 mg/dL (1.8-2.4); PHOSPHORUS 3.4 mg/dL (2.5-4.9); POTASSIUM 3.5 mmol/L (3.5-5.1)
--- NOTE | 2019-08-15 05:47 | NUR ---
ASSUMED PT CARE AT 1900. PT C/O ABD PAIN AND SLIGHT FEVER. GAVE MEDICATION PER DEC WITH PROGRESS ON PAIN AND FEVER. PT SACRUM WOUND WAS CLEANSED AND REDRESSED PER ORDERS. PT HEPARIN PROTOCOL IS BEING FOLLOWED. PT IS BEING MONITORED PER POC. PT HAS DIALYSIS MWF AND IS BEING CONSULTED FOR THIS. WILL CONTINUE TO ASSESS AND MONITOR.
[2019-08-15 07:39] VITALS: BP 111/51
[2019-08-15 11:46] VITALS: BP 117/48
--- NOTE | 2019-08-15 14:36 | NUR ---
met with patient and discussed Advance directives. Patient wants to name a DPOA but at this time has noone to name. Discussed his dtr is listed Aniya and patient reports "she took off." She cannot be found. He found her once on Facebook but she did not respond to him. He reports she is upset with him. He has advance directive information but wants to think of someone to name.
--- NOTE | 2019-08-15 17:15 | NUR ---
PT ALERT AND ORIENTED TIMES FOUR. VSS, 98%RA, SR IN TELE, FISHMAN TO DD. HEPSRIN GTT INFUSING PER PROTOCOL. DRESSSING CHANGED. PT HAD DIALYSIS TODAY NO ISSUES. PT DENIES PAIN/SOA. PT TOLERATES MEDS AND MEALS. PT SLOWLY PROGRESSING TOWRADS POC GOALS.
[2019-08-15 18:30] VITALS: BP 105/56
[2019-08-15 21:06] VITALS: BP 111/52
[2019-08-16 05:55] VITALS: BP 132/68
[2019-08-16 06:18] LABS: HEMATOCRIT 33.4 % (42.0-52.0); HEMOGLOBIN 10.6 gm/dL (14.0-18.0); MCH 30.1 pg (26.0-34.0); MCHC 31.7 g/dL (28.0-37.0); MCV 94.8 fL (80.0-100.0); RBC 3.52 mil/uL (4.50-6.00); RDW 16.7 % (10.5-14.5); WBC 10.1 thou/uL (4.0-11.0)
[2019-08-16 06:34] LABS: MAGNESIUM 1.9 mg/dL (1.8-2.4); PHOSPHORUS 3.7 mg/dL (2.5-4.9); POTASSIUM 3.6 mmol/L (3.5-5.1)
[2019-08-16 06:39] LABS: CREATININE 3.7 mg/dL (0.7-1.3)
--- NOTE | 2019-08-16 06:41 | NUR ---
ASSUMED PT CARE AT 1900. PT VSS. PT JUST FINISHED DIALYSIS AND HAD 4L REMOVED. PT WAS TIRED AND RESTED THRU THE NIGHT. WILL CONTINUE TO MONITOR PT PER POC.
[2019-08-16 09:50] VITALS: BP 124/49
[2019-08-16 12:05] VITALS: BP 127/50
[2019-08-16 13:06] LABS: HEMATOCRIT 32.6 % (42.0-52.0); HEMOGLOBIN 10.5 gm/dL (14.0-18.0); MCH 30.5 pg (26.0-34.0); MCHC 32.2 g/dL (28.0-37.0); MCV 94.7 fL (80.0-100.0); RBC 3.44 mil/uL (4.50-6.00); RDW 16.2 % (10.5-14.5); WBC 10.7 thou/uL (4.0-11.0)
[2019-08-16 15:30] VITALS: BP 123/49
--- NOTE | 2019-08-16 18:04 | NUR ---
ASSESMENT DOCUMENTED, A&O X4. SLEPT MOST OF THE DAY. AFEBRIL AND Q2 POSITIONED NEEDED AND FOR COMFORT. PREGRESSING TOWRDS GOALS AND WILL CONTINUE WITH POC.
[2019-08-16 18:53] LABS: HEMATOCRIT 31.6 % (42.0-52.0); HEMOGLOBIN 10.1 gm/dL (14.0-18.0); MCH 30.3 pg (26.0-34.0); MCV 94.7 fL (80.0-100.0); RBC 3.34 mil/uL (4.50-6.00); RDW 16.2 % (10.5-14.5)
[2019-08-16 19:30] VITALS: BP 124/55
[2019-08-17 03:59] LABS: PROTIME 10.2 Seconds (9.3-11.4)
--- NOTE | 2019-08-17 04:17 | NUR ---
ASSESSMENT DOCUMENTED.PT BEEN RESTING THROUGH THE NOC.VSS.ON RA W/O RESP DISTRESS.AFEBRILE.C/O NAUSEA WITH ONE EPISODE OF YELLOW EMESIS.DENIES ABDOMEN PAIN.PT STATES THIS HAPPENS ALOT EVEN DURING THE DAY,ETIOLOGY UNKNOWN PER PT.ENTIEMETIC GIVEN X1.REMAINS ON HEPARIN DRIP PER PROTOCOL D/T PE AND DVT,APTT THERAPEUTIC.REFUSED TO BE TURNED ADN REPOSITIONED,ON YOEL MATTRESS.PT HOPING TO AHVE WOUND CARE DEBRIDE HIS SACRAL WOUND BEFORE DISCHARGE.WILL CONT TO MONITOR PER POC.
[2019-08-17 04:24] VITALS: BP 128/45
[2019-08-17 07:00] VITALS: BP 161/72
[2019-08-17 11:20] VITALS: BP 108/47
[2019-08-17 15:20] VITALS: BP 113/41
--- NOTE | 2019-08-17 16:46 | NUR ---
Message left for the DON at [facility]. No weekend dc expected. Pt remains on a heprin gtt until his coumadin and INR is theraputic. [facility] The pt dialyzed today. [facility] will need to be contacted and dc summary faxed to them to resume his outpt MWF txs. Will follow.
--- NOTE | 2019-08-17 18:00 | NUR ---
PATIENT CARE ASSUMED, ASSESSMENT CHARTED, VSS, NO COMPLAINTS OF PAIN, PATIENT COMPLETED DIALYSIS IN THE AM, WILL CONTINUE TO MONITOR
[2019-08-18 04:00] VITALS: BP 108/51
[2019-08-18 04:04] LABS: PROTIME 10.7 Seconds (9.3-11.4)
--- NOTE | 2019-08-18 04:32 | NUR ---
PT A7o x4 ABLE TO MAKE NEEDS KNOWN. C/O R RIBS PAIN X1 SO FAR THIS SHIFT. PT CONTINUES IN HEPARIN GTT FOR PE POST VQ SCAN. LAST 2 APTT LEVELS THERAPEUTIC. DIALYSIS PT MWF. PARAPLEGIC. LBKA. HAS COCCYX AND R HEEL PRESSURE ULCERS. ACHS. PT HAS A FISHMAN CATHETER DRAINS WITHOUT DIFFICULTIES. PT OLIGURIC D/T DIALYSIS
[2019-08-18 07:55] VITALS: BP 109/57
[2019-08-18 11:40] VITALS: BP 105/51
--- NOTE | 2019-08-18 12:11 | HC ---
[facility] [place] [address] CONSULTATION Name: GILESHILDA Quiroga Room #: 206-P ADM IN M.R.#: [id number] Admission: 08/13/19 Attend Phys: Erna Huddleston MD Discharge: Date of : 58 Report #: [id number] THIS REPORT FOR: //name// CC: Magdaleno Huddleston DATE OF SERVICE: 08/15/2019 REASON FOR CONSULTATION: End-stage renal disease. REASON FOR THE PRESENTATION: Chest pain and tightness. HISTORY OF PRESENT ILLNESS: A 58-year-old with past medical history of hypertension, diabetes mellitus, peripheral vascular disease, status post left BKA. He dialyzes with the [facility]. He is a Tuesday, Tuesday, Tuesday dialysis patient who was initiated on dialysis a few months ago at [facility] because of longstanding diabetes mellitus and hypertension. He resides in a nursing facility. In the last few minutes of his dialysis yesterday, he began to have some left arm pain and chest pain. He presented to the hospital for further evaluation. He denies any prior similar episodes. He describes the pain as pressure like with radiation to the left upper extremity. He has all the risk factors for coronary artery disease. Lung scan was done yesterday and revealed a high probability for PE. The patient was also found to have DVT. A consult was placed for me to manage the patient's dialysis. PAST MEDICAL HISTORY: 1. Diabetes mellitus. 2. All complications related to diabetes mellitus including diabetic retinopathy, nephropathy, and neuropathy. 3. Anemia of chronic disease. 4. Hypertension. 5. Heart failure. 6. Remote history of cerebrovascular accident. 7. Remote history of spinal cord accident. 8. End-stage renal disease, maintained on dialysis. ALLERGIES: PENICILLIN, FISH CONTAINING PRODUCTS. SOCIAL HISTORY: He quit smoking a couple of years ago. No reported drug or alcohol abuse. He resides in a nursing facility. PAST SURGICAL HISTORY: 1. Hip surgery. 2. Left below-knee amputation. 3. Right foot toe amputations. 4. Cholecystectomy. [facility] [address] [place] [address] CONSULTATION Name: HILDA SKAGGS Room #: 206-P [facility] IN .R.#: [id number] Admission: 08/13/19 Attend Phys: Erna Huddleston MD Discharge: Date of : 58 Report #: [id number] MEDICATIONS: 1. Lisinopril. 2. Plavix. 3. Flomax. 4. Lasix. 5. Trazodone. 6. Lisinopril. 7. Levemir and Humalog. FAMILY HISTORY: His father had diabetes mellitus and prostate cancer. REVIEW OF SYSTEMS: GENERAL: Significant for weakness. CARDIOVASCULAR: As per the history of present illness. PULMONARY: As per the history of present illness. GASTROINTESTINAL: No nausea or vomiting. MUSCULOSKELETAL: Amputee with limited mobility. NEUROLOGICAL: Occasional headache and dizziness, but no seizure activities. PHYSICAL EXAMINATION: VITAL SIGNS: Temperature is 36.5, pulse rate is 63, blood pressure is 111/51. HEAD AND NECK: No jugular venous distention. Right IJ catheter present. CHEST: Bilateral crackles. CARDIOVASCULAR: Regular with no rub detected. ABDOMEN: Soft, nontender. EXTREMITIES: Lower extremities, left below knee amputation. Multiple missing digits on the right side. LABORATORY DATA: Reviewed. Sodium 129, BUN is 39, creatinine is 4.9. Chest x-ray is consistent with mild pulmonary vascular congestion. Lower extremity Doppler is positive for DVT. Lung scan is positive for high probability of pulmonary embolism. IMPRESSION AND PLAN: 1. End-stage renal disease. 2. Deep venous thrombosis. 3. Pulmonary embolism. 4. Diabetes mellitus. 5. Hypertension. 6. We will arrange for the patient to have his usual hemodialysis today. 7. Resume his outpatient medications. 8. Anticoagulation per Hematology services. [address] [address] CONSULTATION Name: HILDA SKAGGS Room #: 206-P [facility] IN M.R.#: [id number] Admission: 08/13/19 Attend Phys: Erna Huddleston MD Discharge: Date of : 58 Report #: [id number] 9. Hyponatremia is likely related to fluid overload and the patient will have to be counseled about his fluid intake. <ELECTRONICALLY SIGNED> By: Emmanuel Chavis MD 08/18/19 1211 0919 [id number] Emmanuel Chavis MD /sue
[2019-08-18 16:00] VITALS: BP 101/48
[2019-08-18 18:41] VITALS: BP 97/50
[2019-08-18 20:01] VITALS: BP 94/51
--- NOTE | 2019-08-18 20:30 | NUR ---
ASSUMMED PT CARE AT APPROXIMATELY 0700. PT A&O X 4. FALL PRECAUTIONS IN PLACE. ASSESSMENT CHARTED. VITAL SIGNS STABLE. Q2 TURNS. PT DENIES HAVING CHEST PAIN. PT DENIES HAVING SOB. PT STATES HE HAS ACUTE PAIN. ANALGESICS GIVEN. PT STATES ANALGESICS RELEIVE PAIN. PT STATED HE WAS NAUSEATED. PT RECIEVED ANTI-EMETIC. PT STATED ANTI-EMETIC RELEIVED NAUSEA. PT'S HEPARIN THERAPEAUTIC THIS AM. PT COMFORTABLE IN BED. PT EDUCATED ABOUT POC. WOUND CARE GIVEN. PT DENIES HAVING FURTHER CONCERNS.
[2019-08-19 04:41] LABS: HEMATOCRIT 33.7 % (42.0-52.0); HEMOGLOBIN 10.8 gm/dL (14.0-18.0); MCH 30.4 pg (26.0-34.0); MCHC 32.1 g/dL (28.0-37.0); MCV 94.7 fL (80.0-100.0); RBC 3.56 mil/uL (4.50-6.00); RDW 16.3 % (10.5-14.5); WBC 10.6 thou/uL (4.0-11.0)
[2019-08-19 04:54] LABS: PROTIME 10.9 Seconds (9.3-11.4)
--- NOTE | 2019-08-19 05:24 | NUR ---
ASSUMED PT CARE AT 1900. PT IS SLEEPING UPON ARRIVAL TO THE ROOM. NO SIGN OF DISTRESS NOTED. FALL PRECAUTION IN PLACE. VITAL SIGNS STABLE. ASSESSMENT COMPLETED AND CHARTED. SCHEDULED MEDS ADMINISTERED TO PT. NO SIGN OF DISTRESS NOTED. PAIN MED ADMINISTERED TO PT. DENIES ANY NEEDS AT THIS TIME.
[2019-08-19 05:32] VITALS: BP 111/49
[2019-08-19 07:50] VITALS: BP 108/48
--- NOTE | 2019-08-19 10:54 | NUR ---
AAOX4. CALM, COOPERATIVE, AFFECT FLAT. SR WITH 1ST DEGREE AV BLOCK, BBB. COAGS NOTED, HEPARIN DRIP IN PROCESS. APTT 70.6, NO CHANGE, RECHECK 08/20. FALL PRECAUTIONS IN PLACE; WILL CONTINUE TO MONITOR CLOSELY.
--- NOTE | 2019-08-19 11:42 | HC ---
[facility] [place] [address] CONSULTATION Name: HILDA SKAGGS Room #: 206-P ADM IN .R.#: [id number] Admission: 08/13/19 Attend Phys: Erna Huddleston MD Discharge: Date of : 58 Report #: [id number] THIS REPORT FOR: //name// CC: Magdaleno Huddleston DATE OF SERVICE: 08/14/2019 HISTORY OF PRESENT ILLNESS: This is a 58-year-old male patient with whom I am familiar from previous hospitalization. He was admitted to the hospital with increasing shortness of breath and was noted to have pressure ulcer of the sacrum and right heel. 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 I have been asked to see him with regard to wound care. The patient states he does not feel particularly bad, is aware of the ulcerations and notes that there has been some odor. Denies any pain associated with this. PAST MEDICAL HISTORY: Positive for recent abnormal ventilation perfusion scan and consideration for possible pulmonary embolus, acute kidney injury. The patient has been started on a heparin drip. CURRENT MEDICATIONS: Include atorvastatin, baclofen, Coreg, docusate sodium, famotidine, guaifenesin and codeine, heparin by infusion, insulin, ondansetron, Mirapex, sevelamer, tamsulosin, Coumadin. SOCIAL HISTORY: Negative for current alcohol or tobacco use. FAMILY HISTORY: Noncontributory. REVIEW OF SYSTEMS: CONSTITUTIONAL: The patient denies fever, chills, or weight loss. NEUROLOGICAL: The patient has paraplegia. ENT: The patient denies earache, nasal drainage, sore throat. CARDIOVASCULAR: The patient does complain of chest pain that is pleuritic and worse with deep inspiration or movement. PULMONARY: The patient denies cough or shortness of breath. GASTROINTESTINAL: The patient denies nausea, vomiting, diarrhea or abdominal pain. PULMONARY: The patient denies cough or shortness of breath. ORTHOPEDIC: The patient is aware of the ulcers on his lower extremities and the sacral region. Other systems in a 14-point review of systems are negative. PHYSICAL EXAMINATION: VITAL SIGNS: At this time include temperature 37.1, pulse 70, respiratory rate 16, blood pressure 136/58. GENERAL: This is a chronically ill-appearing male patient who appears to be in [address] [address] CONSULTATION Name: HILDA SKAGGS Room #: 206-[facility] IN M.R.#: [id number] Admission: 08/13/19 Attend Phys: Erna Huddleston MD Discharge: Date of : 58 Report #: [id number] minimal distress. HEENT: Head normocephalic. Nose is clear. NECK: Supple. LUNGS: Clear. ABDOMEN: Soft. Bowel sounds present. EXTREMITIES: Examination of the sacral region demonstrates what appears to be mostly an unstageable, likely stage 3, but it is unstageable pressure ulcer of the sacral region. There is odor, some eschar and fibrin. I cannot palpate any deep structures, although the base cannot be fully visualized. Exam of the lower extremities demonstrates a 2-3+ edema, some scattered venous type ulcerations as well as pressure ulceration to the right heel that does not appear to be infected. ALLERGIES: Include FISH PRODUCTS AND PENICILLIN. LABORATORY DATA: Sodium 132, potassium 4.1, chloride 98, CO2 23, BUN 27, creatinine 4.3, protime is 11.3, INR is 1.1. White blood cell count 11,000 with hemoglobin 11.7. Albumin is low at 2.2. 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 RECOMMENDATIONS: At this point in time, the patient will be placed on low air loss mattress. He will need q. 2 hour turning positioning. I do believe he needs surgical debridement to the sacral region, although he is currently on a heparin drip that may make that a little bit more difficult. We will start with pulse lavage to the sacrum and see if we can get it cleaned up with local care and pulse lavage followed by quarter strength Dakin's moist gauze dressings. PRAFO boots to both lower extremities, Nutritional consultation and continuation of current medications. I appreciate being asked to see him in consultation. <ELECTRONICALLY SIGNED> By: Yazan Dao MD 08/19/19 1142 [id number] [id number] Yazan Dao MD /nt
[2019-08-19 12:05] VITALS: BP 109/44
[2019-08-19 16:05] VITALS: BP 122/52
[2019-08-19 19:05] LABS: HEMATOCRIT 33.1 % (42.0-52.0); HEMOGLOBIN 10.7 gm/dL (14.0-18.0); MCH 30.3 pg (26.0-34.0); MCHC 32.2 g/dL (28.0-37.0); MCV 93.9 fL (80.0-100.0); RBC 3.52 mil/uL (4.50-6.00); RDW 16.3 % (10.5-14.5); WBC 11.1 thou/uL (4.0-11.0)
[2019-08-19 19:59] VITALS: BP 101/51
[2019-08-20 05:01] VITALS: BP 132/52
--- NOTE | 2019-08-20 05:31 | NUR ---
ASSUMED PT CARE AT 1900. NO SIGN OF DISTRESS NOTED. PT IS ALERT AND ORIENTED AND DENIES ANY NEEDS. PT IS STABL. PT IS LAYING IN BED. DENIES ANY PAIN. ASSESSMENT COMPLETED AND CHARTED. FALL PRECAUTION IN PLACE. SCHEDULED MEDS ADMINISTERED TO PT. PT CONTINUES TO BE ON HEPARIN DRIP. DENIES ANY FURTHER NEEDS AT THIS TIME.
[2019-08-20 07:40] VITALS: BP 146/56
[2019-08-20 07:54] LABS: HEMATOCRIT 33.2 % (42.0-52.0); HEMOGLOBIN 10.6 gm/dL (14.0-18.0); MCH 30.3 pg (26.0-34.0); MCV 94.5 fL (80.0-100.0); RBC 3.51 mil/uL (4.50-6.00); RDW 16.3 % (10.5-14.5); WBC 10.8 thou/uL (4.0-11.0)
[2019-08-20 08:01] LABS: CALCIUM 9.3 mg/dL (8.5-10.1); MAGNESIUM 2.1 mg/dL (1.8-2.4); POTASSIUM 4.6 mmol/L (3.5-5.1)
[2019-08-20 09:03] LABS: INR 1.5; PROTIME 15.8 Seconds (9.3-11.4)
--- NOTE | 2019-08-20 10:16 | NUR ---
FAXED CLINICAL UPDATE TO [facility] RECEIVED CONFIRMATION AND LEFT MSG WITH JUAN IN ADM.
[2019-08-20 11:45] VITALS: BP 100/53
[2019-08-20 16:10] VITALS: BP 97/46
[2019-08-20 17:07] LABS: CORTISOL RANDOM 10.5 ug/dL (())
--- NOTE | 2019-08-20 18:45 | NUR ---
ASSUMED CARE OF PT AT SHIFT CHANGE. ASSESSMENTS CHARTED. MEDS GIVEN PER DEC. C/O PAIN TREATED WITH PO MEDS. PT VOMITED A SMALL AMT OF GREEN EMESIS IN THE AM. TREATED WITH PO MEDS. PT HAD DIALYSIS TODAY, 4L WERE REMOVED. C/O DOUBLE VISION AND TINGLING AFTER DIALYSIS. BLOOD SUGAR WAS 156. BP WAS 87/39. NOTIFIED PHYSICIAN. VISION IMPROVED IN THE NEXT HOUR. SACRAL DRESSING CHANGED. NO C/O NAUSEA IN THE AFTERNOON. REQUESTED BROTH. WILL CONTINUE TO MONITOR AND FOLLOW POC.
[2019-08-20 20:56] VITALS: BP 124/56
[2019-08-21 00:05] LABS: GLYCOHEMOGLOBIN (HGB A1C) 7.2 % (4.8-5.6)
[2019-08-21 01:53] LABS: HEMATOCRIT 33.6 % (42.0-52.0); HEMOGLOBIN 10.8 gm/dL (14.0-18.0); MCH 30.2 pg (26.0-34.0); MCV 94.3 fL (80.0-100.0); RBC 3.56 mil/uL (4.50-6.00); RDW 16.4 % (10.5-14.5); WBC 10.3 thou/uL (4.0-11.0)
[2019-08-21 02:13] LABS: CALCIUM 9.1 mg/dL (8.5-10.1); POTASSIUM 4.5 mmol/L (3.5-5.1)
[2019-08-21 02:15] LABS: PROTIME 20.3 Seconds (9.3-11.4)
--- NOTE | 2019-08-21 05:11 | NUR ---
ASSUMED PT CARE AT 1900 WITH NO SIGN OF DISTRESS NOTED. PT IS ALERT ORIENTED. PT IS LAYING IN BED. DENIES ANY PAIN. VITAL SIGNS STABLE.ASSESSMENT COMPLETED AND DOCUMEMTED. SCHEDULED MEDS ADMINISTERED PT. PAIN MED ADMINISTERED TO PT. DENIES ANY FURTHER NEEDS AT THIS TIME.
[2019-08-21 06:04] VITALS: BP 108/47
[2019-08-21 07:50] VITALS: BP 99/54
[2019-08-21 11:29] VITALS: BP 98/49
--- NOTE | 2019-08-21 12:01 | HC ---
[facility] [place] [address] CONSULTATION Name: HILDA SKAGGS Room #: 206-P [facility] IN ..#: [id number] Admission: 08/13/19 Attend Phys: Erna Huddleston MD Discharge: Date of : 58 Report #: [id number] THIS REPORT FOR: //name// CC: Magdaleno Huddleston DATE OF SERVICE: 08/20/2019 ENDOCRINE CONSULTATION NOTE CONSULTING PHYSICIAN: Dr. Dhaliwal. REASON FOR CONSULTATION: Uncontrolled type 2 diabetes mellitus. HISTORY OF PRESENT ILLNESS: This is a 58-year-old male patient whose medical background is significant for multiple medical issues including type 2 diabetes mellitus, end-stage renal disease requiring hemodialysis, left BKA, hypertension, COPD, and history of CVA. The patient is a resident of the [facility]. He presented on 08/13/2019 with complaints of sudden-onset chest pain towards the end of a hemodialysis session, he had at that time and was subsequently admitted for further care and monitoring. This eventually turned out to be a result of a pulmonary embolism in association with a DVT and antiphospholipid syndrome and he was initiated on anticoagulation therapy for that. Again, the patient has a longstanding history of type 2 diabetes mellitus that dates to over 30 years ago. His disease has been complicated by multiple severe end-organ complications including end-stage renal disease requiring hemodialysis starting 3 months ago, significant diabetic retinopathy and cataracts requiring multiple eye surgeries and limited eye sightedness, severe peripheral diabetic neuropathy, history of CHF, and CVA as well. The patient was not able to provide a great amount of detail on his usual insulin regimen, but having reviewed his chart, it seems that he was maintained on a combination of Levemir insulin 50 units b.i.d. and NovoLog insulin 15 units t.i.d. a.c. He notes that his blood glucose values have fluctuated a great deal, but denies having had specific issues with hypoglycemia over the past few months. Also, the patient is known to have hypertension and is maintained on carvedilol. He has hyperlipidemia and is maintained on atorvastatin therapy as well. REVIEW OF SYSTEMS: CONSTITUTIONAL: Fatigue, tiredness, but no fever or chills. No appreciated significant body weight changes. HEENT: Negative for sore throat, sinus pain, or ear drainage. PULMONARY: Baseline COPD, shortness of breath, dyspnea on exertion, intermittent cough, but no hemoptysis. [address] [address] CONSULTATION Name: HILDA SKAGGS Room #: 206-P ADM IN .R.#: [id number] Admission: 08/13/19 Attend Phys: Erna Huddleston MD Discharge: Date of : 58 Report #: [id number] CARDIAC: Chest pain as described prior, intermittent palpitations, issues with fluid retention periodically due to baseline CHF. GASTROINTESTINAL: Occasional abdominal distention, discomfort, nausea, but no vomiting or major changes in bowel movement frequency. NEUROLOGY: Peripheral numbness, tingling, and occasionally pain and discomfort with baseline diabetic neuropathy. Occasional lightheadedness, dizziness, but not seizure activity or loss of consciousness. PSYCH: Depressed mood. Occasional issues with anxiety. MUSCULOSKELETAL: Occasional myalgias or arthralgias and joint swelling. Otherwise, review of systems noncontributory other than those mentioned in HPI. PAST MEDICAL HISTORY: 1. Type 2 diabetes mellitus. 2. Hypertension. 3. Hyperlipidemia. 4. Obstructive sleep apnea. 5. COPD. 6. Peripheral neuropathy. 7. GERD. 8. Left BKA. 9. CVA. 10. CKD, end-stage renal disease, on hemodialysis. 11. CHF. 12. Peripheral vascular disease. OUTPATIENT MEDICATIONS: Include: 1. Trazodone 300 mg at bedtime 2. Mirapex 0.5 mg at bedtime. 3. ProAir HFA. 4. Aspirin 81 mg daily. 5. Coreg 25 mg b.i.d. 6. Plavix 75 mg daily. 7. Lipitor 40 mg at bedtime. 8. Flonase nasal spray daily. 9. Flomax 0.4 mg daily. 10. Imodium 2 mg p.r.n. 11. Zofran p.r.n. 12. Levemir insulin 50 units b.i.d. 13. NovoLog 15 units t.i.d. a.c. 14. Protonix 40 mg daily. ALLERGIES: PENICILLIN AND FISH-CONTAINING PRODUCTS. FAMILY HISTORY: Noncontributory. SOCIAL HISTORY: He is not . He denies any active use of tobacco, [facility] [address] [place] [address] CONSULTATION Name: HILDA SKAGGS Room #: 206-P [facility] IN ..#: [id number] Admission: 08/13/19 Attend Phys: Erna Huddleston MD Discharge: Date of : 58 Report #: [id number] alcohol, or illicit drugs. He has 2 children that he is not in communication with. PHYSICAL EXAMINATION: GENERAL: Middle-aged, male patient who appears tired, but not in apparent distress. VITAL SIGNS: Blood pressure is 146/56 mmHg, heart rate is 77 beats per minute, respirations 18 per minute, temperature 36.7 degrees. CONSTITUTIONAL: The patient appears relatively comfortable, not in apparent distress. HEENT: Anicteric sclerae. Intact extraocular motions. NECK: Supple, without JVD, carotid bruits, or lymphadenopathy. I do not appreciate thyromegaly. CHEST: Noted for moderate entry bilaterally with scattered rales and rhonchi. No wheezes or crackles. HEART: Regular rate and rhythm without murmurs or gallops. ABDOMEN: Slightly distended, not tense. Mild tenderness in a generalized fashion to deep palpation, but without guarding. Active bowel sounds. No organomegaly. NEUROLOGIC: Awake, alert, and oriented to time, place, and person. The remainder of his examination is mostly noted for diminished sensation peripherally. PSYCHIATRIC: Depressed mood, but able to interact and answer appropriately. SKIN: No major rash, ulceration, or other abnormalities encountered. LABORATORY DATA: Sodium 126, potassium 4.6, chloride 89, CO2 of 24, anion gap 13, BUN 56, creatinine 7.0, AST 13, amylase 13, lipase 53, total bilirubin 0.5, calcium 9.3, phosphorus 3.7, magnesium 2.1, alkaline phosphatase 92, total protein 6.4, albumin 2.2, GFR 8. Lactic acid 1, triglycerides 94. BNP 20. INR 1.5. White blood count 10.8, hemoglobin 10.6, hematocrit 33.6, platelets 371. Blood glucose data showed that his blood glucose values over the past 24 hours have run between 126 and 183 mg/dL. ASSESSMENT AND PLAN: 1. Type 2 diabetes mellitus. As noted above, the patient has had a fairly longstanding history of type 2 diabetes mellitus that has been associated with severe multiple end-organ complications in the form of end-stage kidney disease, neuropathy, retinopathy, as well as macrovascular disease such as cerebrovascular accident and peripheral vascular disease, culminating in a left below-knee amputation. I will obtain a hemoglobin A1c to better understand the level of control, he has had over the past few months. During his hospital stay so far, the patient has been on a distinctly different insulin regimen consisting of lispro, Humalog insulin 15 units with meals, and then mixed insulin coverage with 75/25 at 25 units b.i.d. in addition to support with Humalog supplemental scale. I will move towards maintaining his Humalog supplemental scale support at a moderate intensity given his insulin resistance, [facility] [address] [place] [address] CONSULTATION Name: HILDA SKAGGS Room #: 206-P [facility] IN [facility].#: [id number] Admission: 08/13/19 Attend Phys: Erna Huddleston MD Discharge: Date of : 58 Report #: [id number] maintain his current scheduled Humalog meal coverage at 15 units before meals, but eliminate the mixed insulin regimen so as to avoid overlapping fast-acting insulin analog inversions and go onto Levemir insulin 20 units b.i.d. Blood glucose monitoring will commence a.c. and at bedtime and level of blood glucose control will be evaluated and his regimen adjusted as needed going forward. 2. Hypertension. The patient's level of blood pressure control has been reasonable, he is to continue with the current regimen. 3. Hyperlipidemia. The patient is known to have hyperlipidemia and warrants aggressive control of his lipids given his established background for type 2 diabetes mellitus and cardiovascular disease. Atorvastatin therapy to continue. 4. Hyponatremia. The patient has hyponatremia with a sodium of 126. The greater likelihood is that it is due to the significant fluid shifts associated with dialysis and end-stage renal disease. However, I will screen the patient for hypothyroidism and for adrenal insufficiency to ensure that these are not contributing to this difficulty as well. I certainly appreciate this consultation by Dr. Dhaliwal. I have spent more than 35 minutes reviewing the patient's current and past medical data using his electronic chart. <ELECTRONICALLY SIGNED> By: Jose Pina MD 08/21/19 1201 0923 [id number] Jose Pina MD /nt
[2019-08-21 15:55] VITALS: BP 109/59
[2019-08-21 17:47] VITALS: BP 103/52
--- NOTE | 2019-08-21 17:58 | NUR ---
ASSUMMED PT CARE AT APPROXIMATELY 0700. PT A&O X4. ASSESSMENT CHARTED. FALL PRECAUTIONS IN PLACE. PT DENIES HAVING CHEST PAIN. PT DENIES HAVING SOB. PT STATES HE HAS CHRONIC PAIN. PT RECEIVED ANALGESICS. PT STATED ANALGESICS RELEIVED PAIN. PT BP LOW IN AM. NOTIFIED. STATED TO HOLD AM BP MED AND TO CONTINUE TO MONITOR. VITAL SIGNS STABLE. BLOOD SUGARS STABLE. Q2 TURNS. PT COMFORTABLE IN BED. PT DENIES HAVING FURTHER CONCERNS. SEE HEPARIN FLOWCHART.
[2019-08-21 19:45] VITALS: BP 100/55
[2019-08-22 04:30] VITALS: BP 122/68
--- NOTE | 2019-08-22 05:12 | NUR ---
ASSUMED PT CARE AT 1900. PT IS LAYING IN BED. NO SIGN OF DISTRESS NOTED IN PT. PT IS ALERT AND ORIENTED. FALL PRECAUTION IN PLACE. ASSESSMENT COMPLETED AND DOCUMENTED. SCHEDULED MEDS ADMINISTERED TO PATIENT. PAIN MED ADMINISTERED. VITAL SIGNS STABLE. PT TURNED, DENIES ANY FURTHER NEEDS AT THIS TIME.
[2019-08-22 07:55] VITALS: BP 119/58
[2019-08-22 10:39] LABS: ABSOLUTE NEUTROPHILS 7.1 thou/uL (1.4-8.2); BASOPHILS 0.8 % (0.0-2.0); EOSINOPHILS 0.5 % (0.0-3.0); HEMATOCRIT 32.7 % (42.0-52.0); HEMOGLOBIN 10.6 gm/dL (14.0-18.0); LYMPHOCYTES 13.6 % (24.0-44.0); MCH 30.5 pg (26.0-34.0); MCHC 32.6 g/dL (28.0-37.0); MCV 93.6 fL (80.0-100.0); PLATELET COUNT 387 thou/uL (150-400); POLYS 77.1 % (36.0-66.0); RBC 3.49 mil/uL (4.50-6.00); RDW 16.1 % (10.5-14.5); WBC 9.2 thou/uL (4.0-11.0)
[2019-08-22 10:57] LABS: INR 2.4; PROTIME 25.4 Seconds (9.3-11.4)
[2019-08-22 11:40] VITALS: BP 130/47
[2019-08-22 13:09] LABS: ALBUMIN 2.5 g/dL (3.4-5.0); CREATININE 3.4 mg/dL (0.7-1.3); MAGNESIUM 1.9 mg/dL (1.8-2.4); PHOSPHORUS 2.8 mg/dL (2.5-4.9); POTASSIUM 3.7 mmol/L (3.5-5.1); TOTAL BILIRUBIN 0.4 mg/dL (<0.1-1.0); TOTAL PROTEIN 7.6 g/dL (6.4-8.2)
--- NOTE | 2019-08-22 15:21 | NUR ---
cont to update [facility] no plan for dc today.
[2019-08-22 16:00] VITALS: BP 104/50
--- NOTE | 2019-08-22 17:31 | NUR ---
ASSUMMED PT CARE AT APPROXIMATELY 0700. PT A&O X4. ASSESSMENT CHARTED. FALL PRECAUTIONS IN PLACE. PT DENIES CHEST PAIN. PT DENIES SOB. PT STATES HE HAS CHRONIC PAIN. PT RECEIVED ANALGESICS. PT STATED ANALGESICS RELEIVED PAIN. VITAL SIGNS STABLE. BLOOD SUGARS STABLE. PT STATED HE WAS NAUSEATED. PT RECEIVED ANTI-EMETIC. PT STATED MED RELEIVED NAUSEA. PT DC OFF HEPARIN. PT RECEIVED RT TX. WOUND CARE GIVEN-SEE ASSESSMENTS. PT COMFORTABLE IN BED. PT DENIES FURTHER CONCERNS. Q2 TURNS.
[2019-08-22 20:58] VITALS: BP 101/52
[2019-08-23 03:55] VITALS: BP 114/44
[2019-08-23 04:07] LABS: URINE BILIRUBIN 2+ (Negative); URINE BLOOD 1+ (Negative); URINE CLARITY TURBID; URINE COLOR BROWN; URINE GLUCOSE-RANDOM* NEGATIVE (Negative); URINE KETONES TRACE (Negative); URINE NITRITE-REFLEX NEGATIVE (Negative); URINE PROTEIN (DIPSTICK) 2+ (Negative); URINE SPECIFIC GRAVITY >= 1.030 (1.005-1.035); URINE UROBILINOGEN 0.2 E.U./dl (0.2-1.0)
[2019-08-23 04:08] LABS: URINE LEUKOCYTES-REFLEX 2+ (Negative)
[2019-08-23 04:49] LABS: CASTS None Seen /LPF (None Seen); CRYSTALS None Seen /LPF (None Seen); MUCUS 4-6 Moderate strn/LPF (None Seen); SQUAMOUS 4-10 Moderate /LPF (0-3); URINE RBC >20 Many /HPF (0-2); URINE WBC-REFLEX >25 Many /HPF (0-5); WBC CLUMPS Packed (None Seen)
[2019-08-23 05:53] LABS: INR 2.8; PROTIME 28.9 Seconds (9.3-11.4)
[2019-08-23 07:58] VITALS: BP 104/60
[2019-08-23 12:27] VITALS: BP 118/57
--- NOTE | 2019-08-23 16:40 | NUR ---
FAXED WOUND CARE NOTES TO [facility] RECEIVED CONFIRMATION AND SPOKE WITH JUAN SHE HAS NOT BEEN ABLE TO REVIEW THEM WILL F/U WITH HER IN THE AM.
--- NOTE | 2019-08-23 17:07 | NUR ---
ASSUMED CARE PT AT SHIFT CHANGE. ASSESSMENTS CHARTED. MEDS GIVEN PER DEC. PT ALERT AND ORIENTED. VSS. WOUND CARE NURSE PUT ON WOUND VAC VERAFLOW, INTACT, DRAINING APPROPRIATELY. WOUND CARE LEG ANKLE AND TOE DONE PER ORDERS. PT TURNED IN BED. APPEITTE ADEQUATE, FISHMAN INTACT. DENIES SOB, PAIN. DENYING NEEDS AT THIS TIME. CONTINUING TO MONITOR.
--- NOTE | 2019-08-23 17:15 | NUR ---
Case discussed with the care team. Call back rec'd from the HIEN Donovan at [facility] this evening. She is not familiar with the veraflow vac and does not feel comfortable taking the pt back. Their clinical appeals specialist is Luna corbin NP who has been seeing him weekly and doing a santil dressing. Surgery to relook at his case in the am to determine best plan of care as wound care feels pt needs an I/D. [facility] may be best option given the pt's complex medical situation. Will send referrals to [facility], [facility] and [facility].
[2019-08-23 19:57] VITALS: BP 124/39
[2019-08-24 04:54] VITALS: BP 108/56
[2019-08-24 05:09] LABS: INR 2.5; PROTIME 26.1 Seconds (9.3-11.4)
--- NOTE | 2019-08-24 05:22 | NUR ---
ASSUMED PT CARE AT ABOUT 1900. PT A/OX4, VITAL SIGNS STABLE, ASSESSMENT CHARTED. PT HAD JUST RECIEVED PAIN MEDS AT ABOUT 1800 WHICH SEEMED TO BE HELPING. VERAFLOW WOUND VAC IN PLACE AND WORKING APPROPRIATELY. Q2T, FREQUENT ROUNDING. PT SEEMED TO BE DOING WELL THROUGH THE NIGHT. NOACUTE CHANGES. PROGRESSING WELL TOWARDS PLAN OF CARE. DIALYSIS MON/WED/FRI. WILL CONTINUE TO MONITOR.
[2019-08-24 08:45] VITALS: BP 113/61
[2019-08-24 11:51] VITALS: BP 126/57
--- NOTE | 2019-08-24 15:33 | NUR ---
[facility] arce here and visited with pt this am during his dialysis tx. He is agreeable to [facility] and has been there before. Referral info faxed per the [facility] habitat conservation planner. Awaiting surgical imput and response from [facility]. If they can accept they will submit for insurance auth. Pt continues to have the veraflow wound vac in place and iv atb. Will follow.
[2019-08-24 16:53] VITALS: BP 129/64
--- NOTE | 2019-08-24 17:10 | NUR ---
ASSUMMED PT CARE AT APPROXIMATELY 0700. PT A&O X4. ASSESSMENT CHARTED. FALL PRECAUTIONS IN PLACE. PT DENIES HAVING CHEST PAIN. PT DENIES HAVING SOB. PT DOES HAVE CHRONIC BACK PAIN. PT RECEIVED ANALGESICS. PT STATED ANALGESICS RELIEVED PAIN. PT RECEIEVED DIALYSIS TODAY. 1 L REMOVED. VITAL SIGNS STABLE. PT WOUND VAC C/D/I. PT DENIES HAVING NAUSEA. ENCOURAGED PT TO EAT AND DRINK. PT COMFORTABLE IN BED. PT DENIES HAVING further CONCERNS. BLOOD SUGARS STABLE.
[2019-08-24 20:37] VITALS: BP 90/41
--- NOTE | 2019-08-25 03:00 | NUR ---
A/O X 4.BILATERAL SHOULDER PAIN WELL CONTROLLED WITH HYDROCODONE.OLIGURIC.DIALYSIS MWF.MONITOR SHOWS SR WITH 1ST DEGREE AVB.PARAPLEGIC.L BKA.USES CPAP AT NIGHT.WOUND VAC INTACT.FISHMAN TO DD.BEDTIME BLOOD GLUCOSE IS 196;SSI AND LEVEMIR WAS GIVEN.WILL CONTINUE POC.
[2019-08-25 05:00] VITALS: BP 109/57
[2019-08-25 07:25] VITALS: BP 120/67
[2019-08-25 11:00] VITALS: BP 116/54
[2019-08-25 16:24] VITALS: BP 126/60
--- NOTE | 2019-08-25 16:51 | NUR ---
RECEIVED PT'S CARE AROUND 0700; PT. ON BED RESTING WITH EYES CLOSED; ALERT TO NAME; DURING ASSESSMENT SLEEP INTERRUPTED; AM MEDICATIONS GIVEN; EDUCATED ABOUT TURN FROM SIDE TO SIDE; ST. UNDERSTANDING; REFUSED SEVERAL TIMES THROUGH THE DAY TO BE TURNED; C/O PAIN; PT. SLEEPING WHEN TRYING TO GIVEN PRN PAIN MEDICATION; WOUND CARE PERFORMED; CHECK CHARTING; INSULIN SCALE INCREASE TO MODERATE PER PHYSICIAN ORDERS; MONITORING; ASSESSMENT CHARGED FOLLOWING POC; WILL PASS ON REPORT;
[2019-08-25 19:33] VITALS: BP 112/59
--- NOTE | 2019-08-26 03:09 | NUR ---
A/O X 4.DENIES PAIN AND SOB.RESTING IN BED AND APPEARS TO BE SLEEPING.CPAP ON.MONITOR SHOWS SR.WILL CONTINUE POC.
[2019-08-26 04:50] VITALS: BP 119/70
[2019-08-26 07:48] VITALS: BP 125/62
[2019-08-26 11:46] LABS: INR 2.2
[2019-08-26 12:24] VITALS: BP 117/58
[2019-08-26 16:00] VITALS: BP 119/59
--- NOTE | 2019-08-26 17:12 | NUR ---
RECEIVED PT'S CARE AROUND 714; PT. ON BES RESTING WITH EYES CLOSED; ANSWER BACK TO NAME; DURING ASSESSMENT C/O SHOULDERS PAIN; NO PAIN MEDICATION REQUESTED; AM MEDICATION GIVEN; C/O STOMACH UPSET; NAUSEA; HAD 25% OF BREAFKAST; REFUSED REGULAR INSULIN; REQUESTED LACTULOSE; PHYSICIAN NOTIFIED; PRN NAUSEA MEDICATION GIVEN; DURING LUNCH TIME PT. HAD 50% MEAL; INSULING REPLACED; HAD SMALL BM; SACRUM DRESSING RE-INFORCED; LEAKING; SKIN BREAK AROUND SACRUM; WOUND PRESSURE AROUND LLE; EDUCATED ABOUT TURNING FROM SIDE TO SIDE; ST. 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 UNDERSTANDING; MONITORING; ASSESSMENT CHARGED; FOLLOWING POC; WILL PASS ON REPORT;
[2019-08-26 20:15] VITALS: BP 121/50
[2019-08-27 05:00] VITALS: BP 125/52
[2019-08-27 05:37] LABS: HEMATOCRIT 29.6 % (42.0-52.0); HEMOGLOBIN 9.5 gm/dL (14.0-18.0); MCH 30.5 pg (26.0-34.0); MCHC 32.2 g/dL (28.0-37.0); MCV 94.8 fL (80.0-100.0); RBC 3.12 mil/uL (4.50-6.00); WBC 9.9 thou/uL (4.0-11.0)
[2019-08-27 05:47] LABS: INR 2.1; PROTIME 21.7 Seconds (9.3-11.4)
[2019-08-27 06:02] LABS: ALBUMIN 1.7 g/dL (3.4-5.0); CALCIUM 8.8 mg/dL (8.5-10.1); CREATININE 5.5 mg/dL (0.7-1.3); PHOSPHORUS 3.1 mg/dL (2.5-4.9); POTASSIUM 4.6 mmol/L (3.5-5.1)
--- NOTE | 2019-08-27 10:47 | NUR ---
FAXED CLINICAL UPDATE TO [facility] SPOKE WITH JUDSON IN ADM SHE RECEIVED UPDATE. POSS DC TODAY DP TO FOLLOW.
[2019-08-27 11:45] VITALS: BP 116/60; BP 144/57
[2019-08-27 11:49] VITALS: BP 117/49
--- NOTE | 2019-08-27 12:44 | NUR ---
Per phys now plan for sx I/D here at [facility]. Updated [place]. plan [place] possibly tomorrow afternoon.
[2019-08-27 14:14] LABS: INR 1.6; PROTIME 16.5 Seconds (9.3-11.4)
[2019-08-27 16:00] VITALS: BP 144/57
--- NOTE | 2019-08-27 17:30 | NUR ---
PATIENT CARE ASSUMED, ALERT AND ORIENTED X 3, VSS, DIALYSIS PERFORMED, TOLERATED WELL. CATHETER PATENT TO DD, WOUND VAC REMOVED, DSG APPLIED TO WOUND, WILL CONTINUE TO MONITOR
[2019-08-27 20:45] VITALS: BP 141/44
[2019-08-28] VITALS (13 sets, daily range): BP systolic 125–160; BP diastolic 49–82
--- NOTE | 2019-08-28 03:15 | NUR ---
ASSUMED PT CARE AT 1900. PT VSS. PT STARTED ON HEPARIN PER ORDER AND DC'D AT MIDNIGHT. PT HAD NO C/O PAIN OR SOB. PT IS NPO FOR DEBRIDEMENT SURGERY IN MORNING. PLAN FOR PT IS TO BE DISCHARGED TO [facility] AFTER PROCEDURE. WILL CONTINUE TO MONITOR PT PER POC.
[2019-08-28 05:43] LABS: INR 1.3; PROTIME 13.4 Seconds (9.3-11.4)
[2019-08-28 08:53] LABS: CALCIUM 8.7 mg/dL (8.5-10.1); POTASSIUM 4.6 mmol/L (3.5-5.1)
[2019-08-28 08:58] LABS: CREATININE 3.7 mg/dL (0.7-1.3)
[2019-08-28] MEDS ORDERED: CLINDAMYCI600 MG/51 IV ×2 (14:04→14:15)
[2019-08-28] MEDS ORDERED: IPRAT-ALBUT 0.5-3 ML INH (14:04)
[2019-08-28] MEDS ORDERED: AZACTAM 1 GM VIA1 G1 IV ×2 (14:04→14:15)
[2019-08-28] MEDS ORDERED: COUMADIN 5 MG TA5 M1 PO (14:04)
[2019-08-28] MEDS ORDERED: REGLAN 5 MG TAB5 MG PO (14:04)
[2019-08-28] MEDS ORDERED: LACTULOSE20 GM/30 M PO (14:04)
[2019-08-28] MEDS ORDERED: NOVOLOG100 UNIT/1 SUBQ ×2 (14:04)
[2019-08-28] MEDS ORDERED: LANTUSSOLASTAR SUBQ (14:04)
[2019-08-28] MEDS ORDERED: LOVENOX40 MG/0.4 SUBQ (14:15)
[2019-08-28 15:10] LABS: APTT 42.7 Seconds (24.5-32.8); INR 1.2; PROTIME 12.7 Seconds (9.3-11.4)
--- NOTE | 2019-08-28 15:20 | NUR ---
Discussed transfer plans with field nurse case manager and Pharmacist. Pharmacist contacted Dr Jhaveri to discuss orders for anticoagulation. Orders were given for one time bolus of Heparin (10.000 units) and begin heparin drip per protocol. Bolus dose was given at 1504 and Heparin gtt was started at 1518 at 15 ml/hr (max does due to weight) or 10 unit/kg/hr. See heparin flow sheet. Baseline coag obtained prior to starting. Drsg remains dry/intact to sacrum.
--- NOTE | 2019-08-28 15:26 | NUR ---
PT DISCHARGING TODAY TO [facility] TODAY FAXED DC ORDERS/SUMMARY AND RECEIVED CONFIRMATIN AND SPOKE WITH JUDSON IN ADM THAT TRANSPORT ARRANGED BY AMBULANCE FOR [phone] TODAY. PT TO NOTIFY HIS FAMILY AND UNIT NOTIFIED AND CHART COPY PER US. RN TO CALL REPORT TO [phone].
[2019-08-28] MEDS ORDERED: HEPARIN-1/100 UNIT/M IVPB (15:30)
--- NOTE | 2019-08-28 17:42 | NUR ---
Paramedics here to transport patient to [facility]. Report was called to Ozzie Rdz RN at 1645. IV pump sent with patient for Heparin infusion and [facility] is to pick it up for return. Sacral wound dressing remains dry and intact. Personal belongings packed by [employer] and sent with patient incuding hospital toiletries and clothes items.
--- NOTE | 2019-08-29 17:06 | PATH ---
[facility] [address] [place] [address] PATHOLOGY RPT PROCEDURE Name: HILDA SKAGGS Room #: 206-P [facility] IN M.R.#: [id number] Admission: 08/13/19 Date of : 58 Discharge: 08/28/19 Report #: [id number] Path Case #: [id number] [facility] Accession Number: [id number] . 01 Material submitted: . sacrum - SACRAL WOUND . 01 Clinical history: . Sacral wound . 02 Diagnosis: Sacral wound, debridement: - Ulceration along with marked acute inflammation involving skin and subcutaneous tissue, compatible with wound. 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 02 Electronically signed: . Emma Hernandez MD, Pathologist NPI- [id number] . 01 Gross description: . The specimen is received in formalin, labeled "Hilda Pankaj, sacral wound". Received are multiple segments of yellow-giraldo, lobulated to castillo-brown, necrotic-appearing tissue measuring 10.0 x 8.8 x 2.5 cm in aggregate dimensions. The specimen is submitted representatively in cassette A1. (CAA; 08/28/2019) QA/QA 08/28/2019 1357 Local . 02 Pathologist provided ICD-10: L89.159 . 02 CPT . 148631 Specimen Comment: A courtesy copy of this report has been sent to [phone], [phone] Specimen Comment: [phone] Specimen Comment: Report sent to / DR CHACON Performed at: [address], [place] [id number] MD Chandler Mendes MD Phone: [phone] Performed at: [address] [id number] MD Emma Hernandez MD Phone: [phone]
--- NOTE | 2019-09-11 09:17 | O ---
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 PROCEDURES PERFORMED: Excisional debridement of skin, subcutaneous tissue, muscle and bone of a stage 4 sacral decubitus wound ultimately measuring 8 x 8 cm in dimension (64 square cm). Preoperative and postoperative wound measurements did not differ substantially as the overall dimensions of the wound did not change. SURGEON: Federica Paul M.D. TRANSPORTATION ASSOCIATE: GLORIA Graves. ANESTHESIA: General endotracheal anesthesia. ESTIMATED BLOOD LOSS: Minimal (less than 5 mL). COMPLICATIONS: None appreciated. SPECIMENS: All debrided tissue to pathology. INDICATIONS: The patient is a 58-year-old male with a longstanding history of a stage 4 sacral decubitus wound, which has been undergoing aggressive local wound care for quite some time. The patient was recently admitted with a pulmonary embolus and placed on anticoagulation where he was found to have recurrent ongoing necrosis of his wound and after appropriate clearance to proceed by the Internal Medicine Service. Indication was for repeat debridement back to healthy tissue throughout today. DESCRIPTION OF PROCEDURE: After explaining the risks, benefits and alternatives of the procedure with the patient in detail and obtaining consent, the patient was brought to the operating room and placed supine on his hospital bed. After conducting a thorough timeout procedure verifying correct patient and procedure, the patient was given general endotracheal anesthesia. Once adequate anesthesia was obtained, his SCDs were hooked up to pneumatic compression device and he was already on an inpatient regimen of IV antibiotic therapy, which is all in line with the SCIP protocol. The patient was now placed on the operating room table [address] [address] OPERATIVE REPORT Name: GILESHILDA Quiroga Room #: 206-P [facility] IN M.R.#: [id number] Admission: 08/13/19 Attend Phys: Erna Huddleston MD Discharge: 08/28/19 Date of : 58 Report #: [id number] in the prone position with all pressure points appropriately padded and his sacral wound was prepped and draped in standard surgical sterile fashion. Electrocautery was used to circumferentially debride all nonviable skin, subcutaneous tissue, muscle, and bone from the periphery of the wound, carried down to the bed of the wound. [employer] ultrasonic debridement tool was now used to remove all remaining biofilm and nonviable tissue arising in a healthy beefy red wound bed throughout. Hemostasis was assured with manual pressure and electrocautery. The wound was then dressed with sterile saline soaked Kerlix gauze, dressed with 4 x 4s, ABDs and Medipore tape completing the procedure. At the end of the procedure, all instrument, needle and sponge counts were correct. The patient tolerated the procedure without incident, was awakened in the operating room and transitioned to the recovery room in stable condition with no apparent complications. <ELECTRONICALLY SIGNED> By: Federica Paul MD, FACS 09/11/19 0917 [id number] [id number] Federica Paul MD, FACS /nt
== END 2019-08-28 17:43 | DRG 579 ==
LOC: ER 14:40 → 2N 18:52 → EROBS 18:52 → 2N 20:25
PROVIDERS: Anesthesiology; Emergency Medicine; Hospitalist; Internal Medicine; Internal Medicine Nephrology; Nurse Practitioner; Surgery; ADMIT Internal Medicine
PROC: 5A1D70Z Performance of Urinary Filtration, Intermittent, Less than 6 Hours Per Day (ICD-10-PCS; principal; 2019-08-20)
PROC: 5A1D70Z Performance of Urinary Filtration, Intermittent, Less than 6 Hours Per Day (ICD-10-PCS; 2019-08-24)
PROC: 30233M1 Transfusion of Nonautologous Plasma Cryoprecipitate into Peripheral Vein, Percutaneous Approach (ICD-10-PCS; 2019-08-27)
PROC: 0QB10ZZ Excision of Sacrum, Open Approach (ICD-10-PCS; 2019-08-28)
DX: L89.154 Pressure ulcer of sacral region, stage 4 (principal); I26.99 Other pulmonary embolism without acute cor pulmonale; N18.6 End stage renal disease; E43 Unspecified severe protein-calorie malnutrition; I13.2 Hypertensive heart and chronic kidney disease with heart failure and with stage 5 chronic kidney disease, or end stage renal disease; G82.20 Paraplegia, unspecified; D68.61 Antiphospholipid syndrome; K50.90 Crohn's disease, unspecified, without complications; E87.1 Hypo-osmolality and hyponatremia; R04.2 Hemoptysis; N39.0 Urinary tract infection, site not specified; I82.433 Acute embolism and thrombosis of popliteal vein, bilateral; Z68.41 Body mass index [BMI] 40.0-44.9, adult; L89.613 Pressure ulcer of right heel, stage 3; J44.9 Chronic obstructive pulmonary disease, unspecified; E78.5 Hyperlipidemia, unspecified; N18.9 Chronic kidney disease, unspecified; I50.9 Heart failure, unspecified; E11.22 Type 2 diabetes mellitus with diabetic chronic kidney disease; E11.42 Type 2 diabetes mellitus with diabetic polyneuropathy; K21.9 Gastro-esophageal reflux disease without esophagitis; E11.51 Type 2 diabetes mellitus with diabetic peripheral angiopathy without gangrene; R07.89 Other chest pain; E11.319 Type 2 diabetes mellitus with unspecified diabetic retinopathy without macular edema; G47.33 Obstructive sleep apnea (adult) (pediatric); D63.8 Anemia in other chronic diseases classified elsewhere; E87.6 Hypokalemia; E83.42 Hypomagnesemia; E66.9 Obesity, unspecified; L97.519 Non-pressure chronic ulcer of other part of right foot with unspecified severity; E11.621 Type 2 diabetes mellitus with foot ulcer; L89.510 Pressure ulcer of right ankle, unstageable; Z89.512 Acquired absence of left leg below knee; Z86.73 Personal history of transient ischemic attack (TIA), and cerebral infarction without residual deficits; Z88.0 Allergy status to penicillin; Z99.81 Dependence on supplemental oxygen; Z86.14 Personal history of Methicillin resistant Staphylococcus aureus infection; Z79.899 Other long term (current) drug therapy; Z79.82 Long term (current) use of aspirin; Z79.4 Long term (current) use of insulin; Z79.51 Long term (current) use of inhaled steroids; Z91.013 Allergy to seafood; Z87.891 Personal history of nicotine dependence; Z89.421 Acquired absence of other right toe(s); Z90.49 Acquired absence of other specified parts of digestive tract; Z79.01 Long term (current) use of anticoagulants; Z87.440 Personal history of urinary (tract) infections; Z74.01 Bed confinement status
CPT/HCPCS: 10081; 32100; 50010; 50101; 50386; 50403; 57119; 57120; 57188; 57189; 62110; 62900; 70005

== ENCOUNTER 2019-10-07 14:32 | Emergency (ER) | payer OTHER ==
[~2019-10-07] VITALS: Ht 193 cm; Wt 144.7 kg
[~2019-10-07 14:32] MED LIST changes: +AZACTAM 1 GM VIA1 G1 IV; +BACLOFEN5 MG PO; +CLINDAMYCI600 MG/51 IV; +COUMADIN 5 MG TA5 M1 PO; +FUROSEMIDE 40 M40 MG PO; +HEPARIN-1/100 UNIT/M IVPB; +IPRAT-ALBUT 0.5-3 ML INH; +LACTULOSE20 GM/30 M PO; +LANTUSSOLASTAR SUBQ; +LEVEMIR100 UNIT/1 SUBQ; +LORATIDINE 10 M10 M1 PO; +LOVENOX40 MG/0.4 SUBQ; +PROTONIX40 M2 PO; +REGLAN 5 MG TAB5 MG PO; +RENVELA800 MG PO; +VITAMIN C500 M1 PO
[2019-10-07 14:50] LABS: ABSOLUTE NEUTROPHILS 8.5 thou/uL (1.4-8.2); BASOPHILS 0.8 % (0.0-2.0); EOSINOPHILS 2.6 % (0.0-3.0); HEMOGLOBIN 8.6 gm/dL (14.0-18.0); MCH 31.9 pg (26.0-34.0); MCHC 33.2 g/dL (28.0-37.0); MONOCYTES 7.5 % (1.0-8.0); PLATELET COUNT 316 thou/uL (150-400); POLYS 73.1 % (36.0-66.0); RBC 2.71 mil/uL (4.50-6.00); RDW 17.1 % (10.5-14.5); WBC 11.6 thou/uL (4.0-11.0)
[2019-10-07 15:00] LABS: ANION GAP 12 mmol/L (7-16); BUN 33 mg/dL (7-18); CALCIUM 9.1 mg/dL (8.5-10.1); CHLORIDE 97 mmol/L (98-107); CO2 22 mmol/L (21-32); CREATININE 5.8 mg/dL (0.7-1.3); GLUCOSE 228 mg/dL (74-106); SODIUM 131 mmol/L (136-145)
[2019-10-07 15:06] LABS: ALBUMIN 2.5 g/dL (3.4-5.0); DIRECT BILIRUBIN < 0.1 mg/dL (<0.1-0.2); SGOT 14 U/L (15-37); SGPT 20 U/L (30-65); TOTAL BILIRUBIN 0.5 mg/dL (<0.1-1.0); TOTAL PROTEIN 7.1 g/dL (6.4-8.2)
[2019-10-07 15:33] LABS: PROTIME 182.7 Seconds (9.3-11.4)
[2019-10-07 15:34] LABS: APTT > 198.4 Seconds (24.5-32.8)
[2019-10-07 15:35] LABS: INR 17.7
[2019-10-07 19:23] VITALS: BP 122/54
== END 2019-10-07 19:25 | disposition short-term general hospital (02) ==
LOC: ER 14:32
PROVIDERS: Emergency Medicine
DX: D62 Acute posthemorrhagic anemia (principal); R79.1 Abnormal coagulation profile; R31.9 Hematuria, unspecified; I13.2 Hypertensive heart and chronic kidney disease with heart failure and with stage 5 chronic kidney disease, or end stage renal disease; I50.9 Heart failure, unspecified; E11.22 Type 2 diabetes mellitus with diabetic chronic kidney disease; E78.5 Hyperlipidemia, unspecified; N18.6 End stage renal disease; J44.9 Chronic obstructive pulmonary disease, unspecified; K21.9 Gastro-esophageal reflux disease without esophagitis; G47.30 Sleep apnea, unspecified; G62.9 Polyneuropathy, unspecified; Z86.14 Personal history of Methicillin resistant Staphylococcus aureus infection; Z86.718 Personal history of other venous thrombosis and embolism; Z86.73 Personal history of transient ischemic attack (TIA), and cerebral infarction without residual deficits; Z99.2 Dependence on renal dialysis; Z79.4 Long term (current) use of insulin; Z87.891 Personal history of nicotine dependence; Z91.013 Allergy to seafood; Z88.0 Allergy status to penicillin; Z88.8 Allergy status to other drugs, medicaments and biological substances

== ENCOUNTER 2019-11-02 19:36 | Emergency (ER) | payer OTHER ==
[~2019-11-02] VITALS: Ht 193 cm; Wt 148.8 kg
[2019-11-02 20:08] LABS: HEMATOCRIT 22.3 % (42.0-52.0); HEMOGLOBIN 7.5 gm/dL (14.0-18.0); MCH 33.1 pg (26.0-34.0); MCHC 33.6 g/dL (28.0-37.0); MCV 98.4 fL (80.0-100.0); RBC 2.27 mil/uL (4.50-6.00); RDW 16.1 % (10.5-14.5); WBC 12.8 thou/uL (4.0-11.0)
[2019-11-02 20:12] LABS: CALCIUM 8.8 mg/dL (8.5-10.1); CREATININE 2.7 mg/dL (0.7-1.3); POTASSIUM 3.5 mmol/L (3.5-5.1)
[2019-11-02 20:17] LABS: INR 1.6; PROTIME 16.7 Seconds (9.3-11.4)
[2019-11-02 23:15] VITALS: BP 115/43
== END 2019-11-02 21:45 | disposition home or self-care (01) ==
LOC: ER 19:36
PROVIDERS: Emergency Medicine
DX: S81.811A Laceration without foreign body, right lower leg, initial encounter (principal); S91.111A Laceration without foreign body of right great toe without damage to nail, initial encounter; D62 Acute posthemorrhagic anemia; I13.0 Hypertensive heart and chronic kidney disease with heart failure and stage 1 through stage 4 chronic kidney disease, or unspecified chronic kidney disease; I50.9 Heart failure, unspecified; E78.5 Hyperlipidemia, unspecified; E11.40 Type 2 diabetes mellitus with diabetic neuropathy, unspecified; E11.22 Type 2 diabetes mellitus with diabetic chronic kidney disease; N18.9 Chronic kidney disease, unspecified; J44.9 Chronic obstructive pulmonary disease, unspecified; K21.9 Gastro-esophageal reflux disease without esophagitis; G47.30 Sleep apnea, unspecified; F17.210 Nicotine dependence, cigarettes, uncomplicated; Z86.73 Personal history of transient ischemic attack (TIA), and cerebral infarction without residual deficits; Z86.14 Personal history of Methicillin resistant Staphylococcus aureus infection; Z79.4 Long term (current) use of insulin; Z79.01 Long term (current) use of anticoagulants; Z91.013 Allergy to seafood; Z88.0 Allergy status to penicillin; Z88.8 Allergy status to other drugs, medicaments and biological substances; W22.01XA Walked into wall, initial encounter; Y93.89 Activity, other specified; Y92.89 Other specified places as the place of occurrence of the external cause; Y99.8 Other external cause status